=== PATIENT | female | born 1945 | race Caucasian/White ===

== ENCOUNTER 2017-09-01 06:21 | Inpatient (IN) ==
[2017-09-01] MEDS ORDERED: methylPREDNISolone SOD SUC 125 MG/2 ML VIAL IV STA (06:51)
[2017-09-01] MEDS ORDERED: ALBUTEROL 2.5 MG/3 ML NEB RESP TX STA ×2 (06:52→07:39)
[2017-09-01] MEDS ORDERED: methylPREDNISolone SOD SUC 125 MG/2 ML VIAL ONE (07:09)
[2017-09-01 07:15] LABS: Basophils # 0.1 10*3/uL (0.0-0.2); Basophils % 0.4 % (0.0-0.8); Eosinophils # 0.1 10*3/uL (0.0-0.87); Eosinophils % 0.9 % (0.00-10.9); Hematocrit 36.4 VOL% (35.7-47.0); Hemoglobin 11.7 GM/DL (12.0-16.0); Immature Granulocytes % 0.5 %; Immature Granulocytes Absolute 0.06 #; Lymphocytes # 2.9 10*3/uL (1.4-4.0); Lymphocytes % 24.6 % (21.3-54.2); Mean Corpuscular HGB Conc 32.1 GM/DL (32-36); Mean Corpuscular Hemoglobin 29 PG (27-34); Mean Corpuscular Volume 90.8 FL (87-102); Mean Platelet Volume 9.7 FL (9.6-12.0); Monocytes # 0.9 10*3/uL (0.11-0.8); Monocytes % 7.9 % (1.7-12.7); Neutrophils # 7.7 10*3/uL (1.4-7.4); Neutrophils % 65.7 % (38.7-73.9); Platelet Count 232 T/CUMM (130-400); Red Blood Count 4.01 MC/CUMM (3.8-5.5); Red Cell Distribution Width 13.7 % (9.3-17.3); White Blood Count 11.8 T/CUMM (4-12)
[2017-09-01 07:31] LABS: Alanine Aminotransferase 21 U/L (13-56); Albumin 3.7 G/DL (3.4-5.0); Alkaline Phosphatase 64 U/L (45-117); Aspartate Amino Transferase 15 U/L (0-37); Bilirubin,Total < 0.39 MG/DL (0.2-1.0); Blood Urea Nitrogen 17 MG/DL (7-18); Calcium 9.5 MG/DL (8.5-10.1); Glucose 113 MG/DL (74-106); Osmolality,Calculated 283.3 MOS/KG (273-304); Potassium 3.8 MMOL/L (3.5-5.1); Sodium 141 MMOL/L (136-145); Total Protein 6.6 G/DL (6.4-8.3)
[2017-09-01] MEDS ORDERED: DEXTROSE 50% 25 GM/50 ML VIAL IV PRN (08:02)
[2017-09-01] MEDS ORDERED: GLUCAGON 1 MG VIAL IM PRN (08:02)
[2017-09-01] MEDS ORDERED: ONDANSETRON 4 MG/2 ML VIAL IV PRN (08:02)
[2017-09-01] MEDS ORDERED: guaiFENesin/DM ER 600-30 MG TABLET PO PRN (08:02)
[2017-09-01] MEDS ORDERED: DOCUSATE SODIUM 100 MG CAPSULE PO PRN (08:02)
[2017-09-01] MEDS: methylPREDNISolone SOD SUC 40 MG/1 ML VIAL IV SCH ×2 (10:23→15:31)
[2017-09-01] MEDS ORDERED: cefTRIAXone 1,000 MG VIAL ONE (10:24)
[2017-09-01] MEDS ORDERED: AZITHROMYCIN 500 MG VIAL IV ONE (10:24)
[2017-09-01] MEDS: cefTRIAXone 1,000 MG in SYRINGE 1 EACH IV SCH (10:25)
[2017-09-01] MEDS ORDERED: PANTOPRAZOLE 40 MG TABLET PO ONE (10:32)
[2017-09-01] MEDS: PANTOPRAZOLE 40 MG TABLET PO SCH (10:33)
[2017-09-01] MEDS: AZITHROMYCIN INJ 500 MG in SODIUM CHLORIDE 0.9% 250 ML IV SCH (10:53)
[2017-09-01] MEDS: ALBUTEROL/IPRATROPIUM 3 ML NEB RESP TX SCH ×2 (12:03→20:33)
[2017-09-01] MEDS: INSULIN LISPRO 100 UNIT/ML SUBCUT SCH ×2 (15:30→17:41)
[2017-09-02] MEDS: methylPREDNISolone SOD SUC 40 MG/1 ML VIAL IV SCH ×2 (00:15→10:16)
[2017-09-02] MEDS: hydrALAZINE 20 MG/1 ML VIAL IV PRN ×2 (00:15→10:36)
[2017-09-02] MEDS: INSULIN LISPRO 100 UNIT/ML SUBCUT SCH ×4 (00:15→18:50)
[2017-09-02] MEDS: NEBIVOLOL 10 MG TABLET PO SCH ×2 (00:20→10:12)
[2017-09-02] MEDS: ALBUTEROL/IPRATROPIUM 3 ML NEB RESP TX SCH ×4 (00:44→20:16)
[2017-09-02 05:41] LABS: Basophils % 0.2 % (0.0-0.8); Hematocrit 37.8 VOL% (35.7-47.0); Hemoglobin 12.3 GM/DL (12.0-16.0); Immature Granulocytes Absolute 0.13 #; Lymphocytes # 0.9 10*3/uL (1.4-4.0); Lymphocytes % 6.9 % (21.3-54.2); Mean Corpuscular HGB Conc 32.5 GM/DL (32-36); Mean Corpuscular Hemoglobin 29 PG (27-34); Mean Platelet Volume 10.4 FL (9.6-12.0); Monocytes # 0.6 10*3/uL (0.11-0.8); Monocytes % 4.6 % (1.7-12.7); Neutrophils # 11.3 10*3/uL (1.4-7.4); Neutrophils % 87.3 % (38.7-73.9); Platelet Count 246 T/CUMM (130-400); Red Cell Distribution Width 13.7 % (9.3-17.3)
[2017-09-02 06:05] LABS: Calcium 9.5 MG/DL (8.5-10.1); Osmolality,Calculated 284.5 MOS/KG (273-304); Potassium 4.2 MMOL/L (3.5-5.1)
[2017-09-02] MEDS ORDERED: NEBIVOLOL 10 MG TABLET PO SCH (09:00)
[2017-09-02] MEDS: PANTOPRAZOLE 40 MG TABLET PO SCH (10:10)
[2017-09-02] MEDS: MONTELUKAST 10 MG TABLET PO SCH (10:10)
[2017-09-02] MEDS: ROFLUMILAST 500 MCG TABLET PO SCH (10:11)
[2017-09-02] MEDS: CETIRIZINE 10 MG TABLET PO SCH (10:11)
[2017-09-02] MEDS: ASPIRIN EC 81 MG TABLET PO SCH (10:12)
[2017-09-02] MEDS: THEOPHYLLINE ER 300 MG TABLET PO SCH ×2 (10:13→20:46)
[2017-09-02] MEDS: DILTIAZEM 60 MG TABLET PO SCH ×2 (10:13→20:45)
[2017-09-02] MEDS: MULTIVITAMIN (CENTRUM) TABLET PO SCH (10:14)
[2017-09-02] MEDS: OMEGA 3 ACID ETHYL ESTERS 1 GM CAPSULE PO SCH (10:14)
[2017-09-02] MEDS: FLUTICASONE 50 MCG NASAL SPRAY 16 GM BOTTLE BOTH NARES SCH ×2 (10:15→20:55)
[2017-09-02] MEDS: BUDESONIDE/FORMOTEROL 160-4.5 INHALER 6 GM INH SCH ×2 (10:36→20:55)
[2017-09-02] MEDS: BENZONATATE 100 MG CAPSULE PO SCH ×3 (10:36→20:46)
[2017-09-02] MEDS: cefTRIAXone 1,000 MG in SYRINGE 1 EACH IV SCH (10:39)
[2017-09-02] MEDS: AZITHROMYCIN INJ 500 MG in SODIUM CHLORIDE 0.9% 250 ML IV SCH (10:46)
[2017-09-02] MEDS ORDERED: TERBUTALINE 1 MG/1 ML VIAL SUBCUT ONE (11:09)
[2017-09-02 11:42] LABS: ABG Base Excess 3.2 MMOL/L (-2.5-2.5); ABG HCO3 27.2 MMOL/L (20-26); ABG PO2 71.9 MM HG (80-95); ABG TCO2 23.7 MMOL/L (23-27)
[2017-09-02] MEDS: DORNASE ALFA 2.5 MG/2.5 ML VIAL RESP TX SCH ×2 (11:45→20:16)
[2017-09-02] MEDS: methylPREDNISolone SOD SUC 125 MG/2 ML VIAL IV SCH ×2 (14:31→18:52)
[2017-09-02] MEDS: MEROPENEM 1,000 MG in SYRINGE 1 EACH IV SCH ×3 (14:35→21:25)
[2017-09-02] MEDS: CLINDAMYCIN INJ 600 MG in PREMIX 1 EACH IV SCH ×2 (14:43→20:44)
[2017-09-02] MEDS: guaiFENesin/DM ER 600-30 MG TABLET PO SCH (20:46)
[2017-09-03] MEDS: INSULIN LISPRO 100 UNIT/ML SUBCUT SCH ×4 (00:46→19:25)
[2017-09-03] MEDS: ALBUTEROL/IPRATROPIUM 3 ML NEB RESP TX SCH ×4 (00:52→21:37)
[2017-09-03] MEDS: methylPREDNISolone SOD SUC 125 MG/2 ML VIAL IV SCH ×3 (04:28→19:21)
[2017-09-03] MEDS: CLINDAMYCIN INJ 600 MG in PREMIX 1 EACH IV SCH ×3 (04:30→20:16)
[2017-09-03 07:17] LABS: Basophils % 0.1 % (0.0-0.8); Hematocrit 35.3 VOL% (35.7-47.0); Hemoglobin 11.7 GM/DL (12.0-16.0); Immature Granulocytes % 1.1 %; Immature Granulocytes Absolute 0.15 #; Lymphocytes # 0.7 10*3/uL (1.4-4.0); Lymphocytes % 5.5 % (21.3-54.2); Mean Corpuscular HGB Conc 33.1 GM/DL (32-36); Mean Corpuscular Hemoglobin 30 PG (27-34); Mean Corpuscular Volume 88.9 FL (87-102); Mean Platelet Volume 10.8 FL (9.6-12.0); Monocytes # 0.6 10*3/uL (0.11-0.8); Monocytes % 4.1 % (1.7-12.7); Neutrophils % 89.2 % (38.7-73.9); Platelet Count 257 T/CUMM (130-400); Red Blood Count 3.97 MC/CUMM (3.8-5.5); White Blood Count 13.5 T/CUMM (4-12)
[2017-09-03] MEDS: DORNASE ALFA 2.5 MG/2.5 ML VIAL RESP TX SCH ×2 (07:35→21:43)
[2017-09-03 07:40] LABS: Calcium 9.6 MG/DL (8.5-10.1); Osmolality,Calculated 288.3 MOS/KG (273-304); Potassium 3.6 MMOL/L (3.5-5.1)
[2017-09-03] MEDS: CETIRIZINE 10 MG TABLET PO SCH (09:19)
[2017-09-03] MEDS: NEBIVOLOL 10 MG TABLET PO SCH (09:19)
[2017-09-03] MEDS: ASPIRIN EC 81 MG TABLET PO SCH (09:20)
[2017-09-03] MEDS: MONTELUKAST 10 MG TABLET PO SCH (09:20)
[2017-09-03] MEDS: BENZONATATE 100 MG CAPSULE PO SCH ×3 (09:20→20:17)
[2017-09-03] MEDS: THEOPHYLLINE ER 300 MG TABLET PO SCH ×2 (09:20→20:17)
[2017-09-03] MEDS: PANTOPRAZOLE 40 MG TABLET PO SCH (09:21)
[2017-09-03] MEDS: DILTIAZEM 60 MG TABLET PO SCH ×2 (09:21→20:17)
[2017-09-03] MEDS: MULTIVITAMIN (CENTRUM) TABLET PO SCH (09:23)
[2017-09-03] MEDS: guaiFENesin/DM ER 600-30 MG TABLET PO SCH ×2 (09:23→20:17)
[2017-09-03] MEDS: OMEGA 3 ACID ETHYL ESTERS 1 GM CAPSULE PO SCH (09:23)
[2017-09-03] MEDS: FLUTICASONE 50 MCG NASAL SPRAY 16 GM BOTTLE BOTH NARES SCH ×2 (09:24→20:15)
[2017-09-03] MEDS: BUDESONIDE/FORMOTEROL 160-4.5 INHALER 6 GM INH SCH ×2 (09:24→20:15)
[2017-09-03] MEDS: MEROPENEM 1,000 MG in SYRINGE 1 EACH IV SCH ×2 (09:25→20:27)
[2017-09-03] MEDS ORDERED: TERBUTALINE 1 MG/1 ML VIAL SUBCUT ONE (09:30)
[2017-09-03 09:38] LABS: PT Patient Result 10.2 SECS; Partial Thromboplastin Time 23.1 SECS (0-40)
[2017-09-03] MEDS: ROFLUMILAST 500 MCG TABLET PO SCH (11:24)
[2017-09-03] MEDS: AZITHROMYCIN INJ 500 MG in SODIUM CHLORIDE 0.9% 250 ML IV SCH (11:32)
[2017-09-04] MEDS: ALBUTEROL/IPRATROPIUM 3 ML NEB RESP TX SCH ×4 (01:30→20:29)
[2017-09-04] MEDS: INSULIN LISPRO 100 UNIT/ML SUBCUT SCH ×4 (02:00→18:33)
[2017-09-04] MEDS: CLINDAMYCIN INJ 600 MG in PREMIX 1 EACH IV SCH ×3 (05:02→21:31)
[2017-09-04] MEDS: methylPREDNISolone SOD SUC 125 MG/2 ML VIAL IV SCH ×3 (05:03→18:34)
[2017-09-04 05:41] LABS: Basophils % 0.1 % (0.0-0.8); Hematocrit 34.5 VOL% (35.7-47.0); Hemoglobin 11.1 GM/DL (12.0-16.0); Immature Granulocytes % 1.6 %; Immature Granulocytes Absolute 0.18 #; Lymphocytes # 0.6 10*3/uL (1.4-4.0); Lymphocytes % 5.1 % (21.3-54.2); Mean Corpuscular HGB Conc 32.2 GM/DL (32-36); Mean Corpuscular Hemoglobin 29 PG (27-34); Mean Corpuscular Volume 90.6 FL (87-102); Monocytes # 0.3 10*3/uL (0.11-0.8); Monocytes % 2.8 % (1.7-12.7); Neutrophils # 10.3 10*3/uL (1.4-7.4); Neutrophils % 90.4 % (38.7-73.9); Platelet Count 217 T/CUMM (130-400); Red Blood Count 3.81 MC/CUMM (3.8-5.5); Red Cell Distribution Width 13.7 % (9.3-17.3); White Blood Count 11.4 T/CUMM (4-12)
[2017-09-04 06:18] LABS: Calcium 8.9 MG/DL (8.5-10.1); Osmolality,Calculated 298.3 MOS/KG (273-304); Potassium 3.8 MMOL/L (3.5-5.1)
[2017-09-04] MEDS ORDERED: PROMETHAZINE 25 MG/1 ML VIAL IM ONE (07:00)
[2017-09-04] MEDS: DORNASE ALFA 2.5 MG/2.5 ML VIAL RESP TX SCH ×3 (07:08→20:29)
[2017-09-04] MEDS ORDERED: MIDAZOLAM 2 MG/2 ML VIAL ONE (07:11)
[2017-09-04] MEDS ORDERED: MIDAZOLAM 2 MG/2 ML VIAL IV ONE (07:30)
[2017-09-04] MEDS ORDERED: LIDOCAINE 2% 20 ML VIAL RESP TX ONE (07:30)
[2017-09-04] MEDS ORDERED: LIDOCAINE 1% 20 ML VIAL MISC INJ ONE (07:30)
[2017-09-04] MEDS: MEROPENEM 1,000 MG in SYRINGE 1 EACH IV SCH ×2 (09:22→21:18)
[2017-09-04] MEDS: THEOPHYLLINE ER 300 MG TABLET PO SCH ×2 (10:23→21:15)
[2017-09-04] MEDS: DILTIAZEM 60 MG TABLET PO SCH ×2 (10:23→21:15)
[2017-09-04] MEDS: OMEGA 3 ACID ETHYL ESTERS 1 GM CAPSULE PO SCH (10:23)
[2017-09-04] MEDS: MONTELUKAST 10 MG TABLET PO SCH (10:23)
[2017-09-04] MEDS: BENZONATATE 100 MG CAPSULE PO SCH ×3 (10:23→21:15)
[2017-09-04] MEDS: MULTIVITAMIN (CENTRUM) TABLET PO SCH (10:23)
[2017-09-04] MEDS: PANTOPRAZOLE 40 MG TABLET PO SCH (10:24)
[2017-09-04] MEDS: CETIRIZINE 10 MG TABLET PO SCH (10:24)
[2017-09-04] MEDS: ASPIRIN EC 81 MG TABLET PO SCH (10:24)
[2017-09-04] MEDS: guaiFENesin/DM ER 600-30 MG TABLET PO SCH ×2 (10:24→21:35)
[2017-09-04] MEDS: FLUTICASONE 50 MCG NASAL SPRAY 16 GM BOTTLE BOTH NARES SCH ×2 (10:24→21:37)
[2017-09-04] MEDS: NEBIVOLOL 10 MG TABLET PO SCH (10:24)
[2017-09-04] MEDS: BUDESONIDE/FORMOTEROL 160-4.5 INHALER 6 GM INH SCH ×2 (10:24→21:36)
[2017-09-04] MEDS: AZITHROMYCIN INJ 500 MG in SODIUM CHLORIDE 0.9% 250 ML IV SCH (10:29)
[2017-09-04] MEDS: ROFLUMILAST 500 MCG TABLET PO SCH (10:29)
[2017-09-04] MEDS ORDERED: ZALEPLON 5 MG CAPSULE PO ONE (21:02)
[2017-09-05] MEDS: ALBUTEROL/IPRATROPIUM 3 ML NEB RESP TX SCH ×2 (00:24→08:18)
[2017-09-05] MEDS: INSULIN LISPRO 100 UNIT/ML SUBCUT SCH ×2 (00:45→06:55)
[2017-09-05] MEDS: methylPREDNISolone SOD SUC 125 MG/2 ML VIAL IV SCH ×2 (04:51→10:59)
[2017-09-05] MEDS: CLINDAMYCIN INJ 600 MG in PREMIX 1 EACH IV SCH (04:54)
[2017-09-05] MEDS: MEROPENEM 1,000 MG in SYRINGE 1 EACH IV SCH (08:44)
[2017-09-05] MEDS: DILTIAZEM 60 MG TABLET PO SCH (08:45)
[2017-09-05] MEDS: THEOPHYLLINE ER 300 MG TABLET PO SCH (08:45)
[2017-09-05] MEDS: PANTOPRAZOLE 40 MG TABLET PO SCH (08:45)
[2017-09-05] MEDS: MULTIVITAMIN (CENTRUM) TABLET PO SCH (08:45)
[2017-09-05] MEDS: MONTELUKAST 10 MG TABLET PO SCH (08:45)
[2017-09-05] MEDS: ASPIRIN EC 81 MG TABLET PO SCH (08:45)
[2017-09-05] MEDS: guaiFENesin/DM ER 600-30 MG TABLET PO SCH (08:45)
[2017-09-05] MEDS: BENZONATATE 100 MG CAPSULE PO SCH (08:46)
[2017-09-05] MEDS: CETIRIZINE 10 MG TABLET PO SCH (08:46)
[2017-09-05] MEDS: NEBIVOLOL 10 MG TABLET PO SCH (08:46)
[2017-09-05] MEDS: FLUTICASONE 50 MCG NASAL SPRAY 16 GM BOTTLE BOTH NARES SCH (08:46)
[2017-09-05] MEDS: OMEGA 3 ACID ETHYL ESTERS 1 GM CAPSULE PO SCH (08:46)
[2017-09-05] MEDS: BUDESONIDE/FORMOTEROL 160-4.5 INHALER 6 GM INH SCH (08:47)
[2017-09-05] MEDS: ROFLUMILAST 500 MCG TABLET PO SCH (08:51)
[2017-09-05] MEDS: DORNASE ALFA 2.5 MG/2.5 ML VIAL RESP TX SCH (10:40)
[2017-09-05] MEDS: AZITHROMYCIN INJ 500 MG in SODIUM CHLORIDE 0.9% 250 ML IV SCH (10:58)
[2017-09-05 12:01] VITALS: BP 163/70
== END 2017-09-05 11:53 | disposition home or self-care (01) | DRG 166 ==
LOC: N.ED 06:21 → N.EDINP 07:46 → SUATTDRO 07:46 → N.4E 13:47
PROVIDERS: ADMIT Internal Medicine Nephrology; ATTEND Internal Medicine

== ENCOUNTER 2018-04-26 09:31 | Inpatient (IN) ==
[2018-04-26 10:26] LABS: Basophils # 0.1 10*3/uL (0.0-0.2); Basophils % 0.3 % (0.0-0.8); Eosinophils # 0.1 10*3/uL (0.0-0.87); Eosinophils % 0.3 % (0.00-10.9); Hematocrit 38.7 VOL% (35.7-47.0); Hemoglobin 12.9 GM/DL (12.0-16.0); Immature Granulocytes % 0.4 %; Immature Granulocytes Absolute 0.08 #; Lymphocytes # 2.3 10*3/uL (1.4-4.0); Lymphocytes % 12.9 % (21.3-54.2); Mean Corpuscular HGB Conc 33.3 GM/DL (32-36); Mean Corpuscular Hemoglobin 30 PG (27-34); Mean Corpuscular Volume 89.6 FL (87-102); Mean Platelet Volume 10.3 FL (9.6-12.0); Monocytes # 1.5 10*3/uL (0.11-0.8); Monocytes % 8.4 % (1.7-12.7); Neutrophils # 13.8 10*3/uL (1.4-7.4); Neutrophils % 77.7 % (38.7-73.9); Platelet Count 219 T/CUMM (130-400); Red Blood Count 4.32 MC/CUMM (3.8-5.5); White Blood Count 17.8 T/CUMM (4-12)
[2018-04-26 10:36] LABS: Albumin 3.6 G/DL (3.4-5.0); Bilirubin,Total 0.6 MG/DL (0.2-1.0); Calcium 9.1 MG/DL (8.5-10.1); Osmolality,Calculated 275.8 MOS/KG (273-304); Potassium 3.5 MMOL/L (3.5-5.1); Total Protein 7.4 G/DL (6.4-8.3)
[2018-04-27 06:11] LABS: Basophils % 0.1 % (0.0-0.8); Hematocrit 34.3 VOL% (35.7-47.0); Hemoglobin 11.4 GM/DL (12.0-16.0); Immature Granulocytes % 0.6 %; Immature Granulocytes Absolute 0.07 #; Lymphocytes # 0.6 10*3/uL (1.4-4.0); Lymphocytes % 5.6 % (21.3-54.2); Mean Corpuscular HGB Conc 33.2 GM/DL (32-36); Mean Corpuscular Hemoglobin 30 PG (27-34); Mean Corpuscular Volume 89.8 FL (87-102); Monocytes # 0.3 10*3/uL (0.11-0.8); Monocytes % 2.6 % (1.7-12.7); Neutrophils # 10.2 10*3/uL (1.4-7.4); Neutrophils % 91.1 % (38.7-73.9); Platelet Count 187 T/CUMM (130-400); Red Blood Count 3.82 MC/CUMM (3.8-5.5); Red Cell Distribution Width 12.8 % (9.3-17.3); White Blood Count 11.2 T/CUMM (4-12)
[2018-04-27 06:45] LABS: Band Neutrophils 11 % (0-10); Lymphocytes 3 % (20-55); Platelet Estimate Normal; Segmented Neutrophils 84 % (50-85); Total Cells Counted 100
[2018-04-27 06:46] LABS: Anisocytosis Slight
[2018-04-27 06:54] LABS: Osmolality,Calculated 292.3 MOS/KG (273-304); Potassium 3.7 MMOL/L (3.5-5.1); Risk Ratio 3.38; Thyroid Stimulating Hormone 0.669 uIU/ml (0.358-3.74); VLDL CHOLESTEROL 16.4 MG/DL
[2018-04-29 08:26] LABS: Basophils % 0.1 % (0.0-0.8); Hemoglobin 11.9 GM/DL (12.0-16.0); Immature Granulocytes % 1.8 %; Immature Granulocytes Absolute 0.17 #; Lymphocytes # 0.7 10*3/uL (1.4-4.0); Lymphocytes % 7.3 % (21.3-54.2); Mean Corpuscular Hemoglobin 30 PG (27-34); Mean Corpuscular Volume 88.6 FL (87-102); Mean Platelet Volume 10.4 FL (9.6-12.0); Monocytes # 0.4 10*3/uL (0.11-0.8); Monocytes % 4.1 % (1.7-12.7); Neutrophils # 8.2 10*3/uL (1.4-7.4); Neutrophils % 86.7 % (38.7-73.9); Platelet Count 219 T/CUMM (130-400); Red Blood Count 3.95 MC/CUMM (3.8-5.5); Red Cell Distribution Width 12.8 % (9.3-17.3); White Blood Count 9.4 T/CUMM (4-12)
[2018-04-29 08:57] LABS: Calcium 8.5 MG/DL (8.5-10.1); Potassium 3.3 MMOL/L (3.5-5.1)
[2018-04-29 09:04] LABS: INR 0.9; Partial Thromboplastin Time 22.4 SECS (0-40)
[2018-05-02 10:33] VITALS: BP 147/77
== END 2018-05-02 11:55 | disposition home or self-care (01) | DRG 192 ==
LOC: N.ED 09:31 → N.EDINP 11:51 → N.5E 12:48
PROVIDERS: ADMIT Internal Medicine; ATTEND Internal Medicine

== ENCOUNTER 2018-05-07 16:51 | Inpatient (IN) ==
[2018-05-07] MEDS ORDERED: ASPIRIN 325 MG TABLET PO STA (18:06)
[2018-05-07] MEDS ORDERED: ONDANSETRON 4 MG/2 ML VIAL IV STA (18:06)
[2018-05-07] MEDS ORDERED: methylPREDNISolone SOD SUC 125 MG/2 ML VIAL IV STA (18:06)
[2018-05-07] MEDS ORDERED: FUROSEMIDE 100 MG/10 ML VIAL IV STA (18:06)
[2018-05-07] MEDS ORDERED: FUROSEMIDE 20 MG/2 ML VIAL ONE (18:11)
[2018-05-07 18:29] LABS: ABG Base Excess 7.9 MMOL/L (-2.5-2.5); ABG HCO3 31.6 MMOL/L (20-26); ABG Oxygen Saturation 96.2 % (95-100); ABG PCO2 41.6 MM HG (35-48); ABG PH 7.494 (7.35-7.45); ABG PO2 74.1 MM HG (80-95); ABG TCO2 27.8 MMOL/L (23-27)
[2018-05-07] MEDS ORDERED: ALBUTEROL NEB SOLN 5 MG/ML 20 ML/BOTTLE RESP TX SCH (18:30)
[2018-05-07 18:44] LABS: Basophils % 0.1 % (0.0-0.8); Eosinophils # 0.1 10*3/uL (0.0-0.87); Eosinophils % 0.7 % (0.00-10.9); Hematocrit 39.3 VOL% (35.7-47.0); Hemoglobin 12.9 GM/DL (12.0-16.0); Immature Granulocytes % 0.8 %; Immature Granulocytes Absolute 0.14 #; Lymphocytes # 1.6 10*3/uL (1.4-4.0); Lymphocytes % 9.9 % (21.3-54.2); Mean Corpuscular HGB Conc 32.8 GM/DL (32-36); Mean Corpuscular Hemoglobin 30 PG (27-34); Mean Corpuscular Volume 90.8 FL (87-102); Mean Platelet Volume 11.2 FL (9.6-12.0); Monocytes # 1.2 10*3/uL (0.11-0.8); Monocytes % 7.2 % (1.7-12.7); Neutrophils # 13.5 10*3/uL (1.4-7.4); Neutrophils % 81.3 % (38.7-73.9); Platelet Count 166 T/CUMM (130-400); Red Blood Count 4.33 MC/CUMM (3.8-5.5); Red Cell Distribution Width 12.8 % (9.3-17.3); White Blood Count 16.5 T/CUMM (4-12)
[2018-05-07 18:52] LABS: PT Patient Result 10.1 SECS
[2018-05-07 19:07] LABS: Albumin 3.1 G/DL (3.4-5.0); Bilirubin,Total 0.7 MG/DL (0.2-1.0); Calcium 8.8 MG/DL (8.5-10.1); Osmolality,Calculated 276.5 MOS/KG (273-304); Potassium 3.6 MMOL/L (3.5-5.1); Total Protein 5.8 G/DL (6.4-8.3)
[2018-05-07 20:22] LABS: Apearance,Urine CLEAR (Clear); Bilirubin,Urine Negative (Negative); Blood, Urine Negative (Negative); Glucose,Urine (UA) Negative (Negative); Ketones,Urine Negative (Negative); Nitrite,Urine Negative (Negative); Protein,Urine Negative; Squamous Epithelial Cell,Urine Occasional /HPF (0-10); Urine Color Straw (Yellow); Urine Specific Gravity 1.012 (1.001-1.035); Urine Urobilinogen < 2.0 EU/DL (0.2-1.0); WBC,Urine 1 /HPF (0-6)
[2018-05-07] MEDS: ALBUTEROL/IPRATROPIUM 3 ML NEB RESP TX SCH (23:00)
[2018-05-07] MEDS ORDERED: IBUPROFEN 800 MG TABLET PO PRN (23:57)
[2018-05-07] MEDS ORDERED: diphenhydrAMINE CAP 25 MG CAPSULE PO PRN (23:57)
[2018-05-07] MEDS ORDERED: GLUCAGON 1 MG VIAL IM PRN (23:57)
[2018-05-07] MEDS ORDERED: ONDANSETRON 4 MG/2 ML VIAL IV PRN (23:57)
[2018-05-07] MEDS ORDERED: DEXTROSE 50% 25 GM/50 ML VIAL IV PRN (23:57)
[2018-05-07] MEDS ORDERED: LACTULOSE 20 GM/30 ML UDCUP PO PRN (23:57)
[2018-05-08] MEDS ORDERED: INSULIN REGULAR 100 UNIT/ML SUBCUT ONE (00:16)
[2018-05-08] MEDS: AZITHROMYCIN INJ 500 MG in SODIUM CHLORIDE 0.9% 250 ML IV SCH (01:56)
[2018-05-08] MEDS: ALBUTEROL/IPRATROPIUM 3 ML NEB RESP TX SCH ×6 (02:43→23:44)
[2018-05-08 06:57] LABS: Basophils % 0.2 % (0.0-0.8); Hematocrit 37.9 VOL% (35.7-47.0); Hemoglobin 12.4 GM/DL (12.0-16.0); Immature Granulocytes % 0.8 %; Lymphocytes # 0.2 10*3/uL (1.4-4.0); Lymphocytes % 1.7 % (21.3-54.2); Mean Corpuscular HGB Conc 32.7 GM/DL (32-36); Mean Corpuscular Hemoglobin 29 PG (27-34); Mean Corpuscular Volume 89.2 FL (87-102); Mean Platelet Volume 10.7 FL (9.6-12.0); Monocytes # 0.3 10*3/uL (0.11-0.8); Monocytes % 2.2 % (1.7-12.7); Neutrophils # 12.4 10*3/uL (1.4-7.4); Neutrophils % 95.1 % (38.7-73.9); Platelet Count 186 T/CUMM (130-400); Red Blood Count 4.25 MC/CUMM (3.8-5.5); Red Cell Distribution Width 12.9 % (9.3-17.3)
[2018-05-08 07:29] LABS: Band Neutrophils 1 % (0-10); Hypochromasia 1+; Platelet Estimate Adequate; Segmented Neutrophils 97 % (50-85); Total Cells Counted 100
[2018-05-08 07:30] LABS: Albumin 2.8 G/DL (3.4-5.0); Bilirubin,Total 0.5 MG/DL (0.2-1.0); Calcium 8.4 MG/DL (8.5-10.1); Osmolality,Calculated 297.7 MOS/KG (273-304); Total Protein 5.8 G/DL (6.4-8.3)
[2018-05-08] MEDS ORDERED: NON-FORMULARY MEDICATION (Fluticasone 50 Mcg Nasal Spray [Flonase Nasal Spray] 2 SPRAY) BOTH NARES SCH (09:00)
[2018-05-08] MEDS: CETIRIZINE 10 MG TABLET PO SCH (09:42)
[2018-05-08] MEDS: PANTOPRAZOLE 40 MG TABLET PO SCH (09:42)
[2018-05-08] MEDS: DILTIAZEM 60 MG TABLET PO SCH ×2 (09:42→21:38)
[2018-05-08] MEDS: MULTIVITAMIN (CENTRUM) TABLET PO SCH (09:42)
[2018-05-08] MEDS: DOCUSATE SODIUM 100 MG CAPSULE PO PRN (09:42)
[2018-05-08] MEDS: ASPIRIN EC 81 MG TABLET PO SCH (09:43)
[2018-05-08] MEDS: THEOPHYLLINE ER (24 HR) 300 MG CAPSULE PO SCH ×2 (09:43→21:38)
[2018-05-08] MEDS: guaiFENesin/DM ER 600-30 MG TABLET PO SCH (09:43)
[2018-05-08] MEDS: ROFLUMILAST 500 MCG TABLET PO SCH (09:43)
[2018-05-08] MEDS: MONTELUKAST 10 MG TABLET PO SCH (09:43)
[2018-05-08] MEDS: DOXYCYCLINE HYCLATE 100 MG CAPSULE PO SCH ×2 (09:43→21:38)
[2018-05-08] MEDS: NEBIVOLOL 10 MG TABLET PO SCH (09:43)
[2018-05-08] MEDS: OMEGA 3 ACID ETHYL ESTERS 1 GM CAPSULE PO SCH (09:43)
[2018-05-08] MEDS: ENOXAPARIN 40 MG/0.4 ML SYRINGE SUBCUT SCH (09:43)
[2018-05-08] MEDS: methylPREDNISolone SOD SUC 40 MG/1 ML VIAL IV SCH ×2 (09:44→21:38)
[2018-05-08] MEDS: INSULIN REGULAR 100 UNIT/ML SUBCUT SCH ×4 (09:48→21:39)
[2018-05-08] MEDS: FUROSEMIDE 20 MG/2 ML VIAL IV SCH (09:53)
[2018-05-08] MEDS: BUDESONIDE/FORMOTEROL 160-4.5 INHALER 6 GM INH SCH ×2 (09:53→21:43)
[2018-05-08] MEDS: valACYclovir 500 MG TABLET PO SCH ×2 (14:58→21:38)
[2018-05-08] MEDS: SODIUM CHLORIDE 0.9% 1,000 ML IV SCH (17:28)
[2018-05-08] MEDS: DORNASE ALFA 2.5 MG/2.5 ML VIAL RESP TX SCH (19:38)
[2018-05-09] MEDS: guaiFENesin 200 MG/10 ML UDCUP PO PRN ×3 (00:34→19:01)
[2018-05-09] MEDS: AZITHROMYCIN INJ 500 MG in SODIUM CHLORIDE 0.9% 250 ML IV SCH (00:39)
[2018-05-09] MEDS: ALBUTEROL/IPRATROPIUM 3 ML NEB RESP TX SCH ×6 (03:26→23:47)
[2018-05-09 05:52] LABS: Basophils % 0.1 % (0.0-0.8); Hematocrit 35.3 VOL% (35.7-47.0); Hemoglobin 11.6 GM/DL (12.0-16.0); Immature Granulocytes Absolute 0.13 #; Lymphocytes # 0.3 10*3/uL (1.4-4.0); Lymphocytes % 2.4 % (21.3-54.2); Mean Corpuscular HGB Conc 32.9 GM/DL (32-36); Mean Corpuscular Hemoglobin 30 PG (27-34); Mean Corpuscular Volume 89.8 FL (87-102); Mean Platelet Volume 11.8 FL (9.6-12.0); Monocytes # 0.4 10*3/uL (0.11-0.8); Monocytes % 3.2 % (1.7-12.7); Neutrophils # 11.9 10*3/uL (1.4-7.4); Neutrophils % 93.3 % (38.7-73.9); Platelet Count 123 T/CUMM (130-400); Red Blood Count 3.93 MC/CUMM (3.8-5.5); White Blood Count 12.8 T/CUMM (4-12)
[2018-05-09 06:04] LABS: Calcium 8.3 MG/DL (8.5-10.1); Osmolality,Calculated 294.4 MOS/KG (273-304); Potassium 3.9 MMOL/L (3.5-5.1)
[2018-05-09 06:17] LABS: Band Neutrophils 13 % (0-10); Lymphocytes 2 % (20-55); Platelet Estimate Adequate; Segmented Neutrophils 81 % (50-85); Total Cells Counted 100
[2018-05-09 06:18] LABS: Anisocytosis 1+; Macrocytosis Slight
[2018-05-09] MEDS: SODIUM CHLORIDE 0.9% 1,000 ML IV SCH ×4 (06:44→22:10)
[2018-05-09] MEDS: DORNASE ALFA 2.5 MG/2.5 ML VIAL RESP TX SCH ×2 (07:47→19:25)
[2018-05-09] MEDS: INSULIN REGULAR 100 UNIT/ML SUBCUT SCH ×4 (09:05→20:16)
[2018-05-09] MEDS: methylPREDNISolone SOD SUC 40 MG/1 ML VIAL IV SCH ×2 (09:08→19:01)
[2018-05-09] MEDS: NEBIVOLOL 10 MG TABLET PO SCH (09:09)
[2018-05-09] MEDS: DOCUSATE SODIUM 100 MG CAPSULE PO PRN (09:10)
[2018-05-09] MEDS: guaiFENesin/DM ER 600-30 MG TABLET PO SCH (09:10)
[2018-05-09] MEDS: valACYclovir 500 MG TABLET PO SCH ×3 (09:10→20:14)
[2018-05-09] MEDS: DOXYCYCLINE HYCLATE 100 MG CAPSULE PO SCH ×2 (09:10→20:15)
[2018-05-09] MEDS: DILTIAZEM 60 MG TABLET PO SCH ×2 (09:10→20:14)
[2018-05-09] MEDS: THEOPHYLLINE ER (24 HR) 300 MG CAPSULE PO SCH ×2 (09:10→20:14)
[2018-05-09] MEDS: MONTELUKAST 10 MG TABLET PO SCH (09:10)
[2018-05-09] MEDS: ASPIRIN EC 81 MG TABLET PO SCH (09:10)
[2018-05-09] MEDS: ROFLUMILAST 500 MCG TABLET PO SCH (09:11)
[2018-05-09] MEDS: PANTOPRAZOLE 40 MG TABLET PO SCH (09:11)
[2018-05-09] MEDS: FUROSEMIDE 20 MG/2 ML VIAL IV SCH (09:11)
[2018-05-09] MEDS: CETIRIZINE 10 MG TABLET PO SCH (09:11)
[2018-05-09] MEDS: MULTIVITAMIN (CENTRUM) TABLET PO SCH (09:11)
[2018-05-09] MEDS: ENOXAPARIN 40 MG/0.4 ML SYRINGE SUBCUT SCH (09:12)
[2018-05-09] MEDS: OMEGA 3 ACID ETHYL ESTERS 1 GM CAPSULE PO SCH (09:14)
[2018-05-09] MEDS: BUDESONIDE/FORMOTEROL 160-4.5 INHALER 6 GM INH SCH ×2 (09:19→20:18)
[2018-05-09] MEDS: AZTREONAM 1,000 MG in SYRINGE 1 EACH IV SCH ×2 (09:21→20:16)
[2018-05-10] MEDS: methylPREDNISolone SOD SUC 40 MG/1 ML VIAL IV SCH ×4 (00:36→22:13)
[2018-05-10] MEDS: AZITHROMYCIN INJ 500 MG in SODIUM CHLORIDE 0.9% 250 ML IV SCH (00:36)
[2018-05-10] MEDS: ALBUTEROL/IPRATROPIUM 3 ML NEB RESP TX SCH ×6 (02:40→23:03)
[2018-05-10] MEDS: SODIUM CHLORIDE 0.9% 1,000 ML IV SCH (06:23)
[2018-05-10 06:34] LABS: Hematocrit 33.2 VOL% (35.7-47.0); Hemoglobin 11.1 GM/DL (12.0-16.0); Immature Granulocytes % 1.1 %; Immature Granulocytes Absolute 0.11 #; Lymphocytes # 0.2 10*3/uL (1.4-4.0); Lymphocytes % 1.7 % (21.3-54.2); Mean Corpuscular HGB Conc 33.4 GM/DL (32-36); Mean Corpuscular Hemoglobin 30 PG (27-34); Mean Corpuscular Volume 89.5 FL (87-102); Mean Platelet Volume 10.8 FL (9.6-12.0); Monocytes # 0.2 10*3/uL (0.11-0.8); Monocytes % 2.4 % (1.7-12.7); Neutrophils # 9.4 10*3/uL (1.4-7.4); Neutrophils % 94.8 % (38.7-73.9); Platelet Count 168 T/CUMM (130-400); Red Blood Count 3.71 MC/CUMM (3.8-5.5); Red Cell Distribution Width 13.2 % (9.3-17.3)
[2018-05-10 07:04] LABS: Calcium 7.9 MG/DL (8.5-10.1); Osmolality,Calculated 294.3 MOS/KG (273-304); Potassium 3.7 MMOL/L (3.5-5.1)
[2018-05-10 07:43] LABS: Lymphocytes 3 % (20-55); Segmented Neutrophils 97 % (50-85); Total Cells Counted 100
[2018-05-10 07:44] LABS: Platelet Estimate Normal
[2018-05-10] MEDS: DORNASE ALFA 2.5 MG/2.5 ML VIAL RESP TX SCH ×2 (07:45→19:15)
[2018-05-10] MEDS: ENOXAPARIN 40 MG/0.4 ML SYRINGE SUBCUT SCH (08:30)
[2018-05-10] MEDS: PANTOPRAZOLE 40 MG TABLET PO SCH (08:30)
[2018-05-10] MEDS: MULTIVITAMIN (CENTRUM) TABLET PO SCH (08:30)
[2018-05-10] MEDS: valACYclovir 500 MG TABLET PO SCH ×3 (08:30→21:32)
[2018-05-10] MEDS: DOXYCYCLINE HYCLATE 100 MG CAPSULE PO SCH ×2 (08:31→21:32)
[2018-05-10] MEDS: MONTELUKAST 10 MG TABLET PO SCH (08:31)
[2018-05-10] MEDS: NEBIVOLOL 10 MG TABLET PO SCH (08:31)
[2018-05-10] MEDS: FUROSEMIDE 20 MG/2 ML VIAL IV SCH (08:31)
[2018-05-10] MEDS: DILTIAZEM 60 MG TABLET PO SCH ×2 (08:31→21:32)
[2018-05-10] MEDS: guaiFENesin/DM ER 600-30 MG TABLET PO SCH (08:31)
[2018-05-10] MEDS: THEOPHYLLINE ER (24 HR) 300 MG CAPSULE PO SCH ×2 (08:31→21:32)
[2018-05-10] MEDS: INSULIN REGULAR 100 UNIT/ML SUBCUT SCH ×4 (08:32→21:35)
[2018-05-10] MEDS: ASPIRIN EC 81 MG TABLET PO SCH (08:32)
[2018-05-10] MEDS: CETIRIZINE 10 MG TABLET PO SCH (08:32)
[2018-05-10] MEDS: OMEGA 3 ACID ETHYL ESTERS 1 GM CAPSULE PO SCH (08:32)
[2018-05-10] MEDS: ROFLUMILAST 500 MCG TABLET PO SCH (08:32)
[2018-05-10] MEDS: AZTREONAM 1,000 MG in SYRINGE 1 EACH IV SCH ×2 (08:33→22:13)
[2018-05-10] MEDS: BUDESONIDE/FORMOTEROL 160-4.5 INHALER 6 GM INH SCH ×2 (09:58→21:35)
[2018-05-10] MEDS: guaiFENesin 200 MG/10 ML UDCUP PO PRN ×3 (10:02→21:32)
[2018-05-10] MEDS ORDERED: ALBUTEROL/IPRATROPIUM 3 ML NEB RESP TX PRN (10:10)
[2018-05-10] MEDS: INSULIN GLARGINE 100 UNIT/ML SUBCUT SCH (11:35)
[2018-05-11] MEDS: AZITHROMYCIN INJ 500 MG in SODIUM CHLORIDE 0.9% 250 ML IV SCH (00:25)
[2018-05-11] MEDS: methylPREDNISolone SOD SUC 40 MG/1 ML VIAL IV SCH ×3 (00:25→16:05)
[2018-05-11] MEDS: ALBUTEROL/IPRATROPIUM 3 ML NEB RESP TX SCH ×5 (03:10→19:46)
[2018-05-11 06:30] LABS: Hematocrit 34.5 VOL% (35.7-47.0); Hemoglobin 11.3 GM/DL (12.0-16.0); Immature Granulocytes % 0.9 %; Immature Granulocytes Absolute 0.06 #; Lymphocytes # 0.3 10*3/uL (1.4-4.0); Lymphocytes % 5.2 % (21.3-54.2); Mean Corpuscular HGB Conc 32.8 GM/DL (32-36); Mean Corpuscular Hemoglobin 30 PG (27-34); Mean Corpuscular Volume 91.5 FL (87-102); Mean Platelet Volume 10.5 FL (9.6-12.0); Monocytes # 0.2 10*3/uL (0.11-0.8); Monocytes % 3.3 % (1.7-12.7); Neutrophils % 90.6 % (38.7-73.9); Platelet Count 160 T/CUMM (130-400); Red Blood Count 3.77 MC/CUMM (3.8-5.5); White Blood Count 6.6 T/CUMM (4-12)
[2018-05-11 06:56] LABS: Calcium 7.9 MG/DL (8.5-10.1); Osmolality,Calculated 294.3 MOS/KG (273-304); Potassium 3.6 MMOL/L (3.5-5.1)
[2018-05-11] MEDS: DORNASE ALFA 2.5 MG/2.5 ML VIAL RESP TX SCH ×2 (08:24→19:46)
[2018-05-11] MEDS: valACYclovir 500 MG TABLET PO SCH ×3 (10:00→21:58)
[2018-05-11] MEDS: MONTELUKAST 10 MG TABLET PO SCH (10:00)
[2018-05-11] MEDS: PANTOPRAZOLE 40 MG TABLET PO SCH (10:00)
[2018-05-11] MEDS: NEBIVOLOL 10 MG TABLET PO SCH (10:01)
[2018-05-11] MEDS: THEOPHYLLINE ER (24 HR) 300 MG CAPSULE PO SCH ×2 (10:01→21:58)
[2018-05-11] MEDS: guaiFENesin/DM ER 600-30 MG TABLET PO SCH (10:01)
[2018-05-11] MEDS: ROFLUMILAST 500 MCG TABLET PO SCH (10:01)
[2018-05-11] MEDS: ASPIRIN EC 81 MG TABLET PO SCH (10:01)
[2018-05-11] MEDS: MULTIVITAMIN (CENTRUM) TABLET PO SCH (10:01)
[2018-05-11] MEDS: DOXYCYCLINE HYCLATE 100 MG CAPSULE PO SCH ×2 (10:01→21:58)
[2018-05-11] MEDS: DILTIAZEM 60 MG TABLET PO SCH ×2 (10:01→21:59)
[2018-05-11] MEDS: CETIRIZINE 10 MG TABLET PO SCH (10:02)
[2018-05-11] MEDS: OMEGA 3 ACID ETHYL ESTERS 1 GM CAPSULE PO SCH (10:02)
[2018-05-11] MEDS: ENOXAPARIN 40 MG/0.4 ML SYRINGE SUBCUT SCH (10:02)
[2018-05-11] MEDS: guaiFENesin 200 MG/10 ML UDCUP PO PRN ×3 (10:02→22:02)
[2018-05-11] MEDS: FUROSEMIDE 20 MG/2 ML VIAL IV SCH (10:02)
[2018-05-11] MEDS: INSULIN REGULAR 100 UNIT/ML SUBCUT SCH ×4 (10:04→21:59)
[2018-05-11] MEDS: AZTREONAM 1,000 MG in SYRINGE 1 EACH IV SCH ×2 (10:04→22:00)
[2018-05-11] MEDS: BUDESONIDE/FORMOTEROL 160-4.5 INHALER 6 GM INH SCH ×2 (10:05→22:00)
[2018-05-11] MEDS: INSULIN GLARGINE 100 UNIT/ML SUBCUT SCH (10:11)
[2018-05-11 15:01] LABS: Lymphocytes 4 % (20-55); Macrocytosis Slight; Platelet Estimate Adequate; Segmented Neutrophils 92 % (50-85); Total Cells Counted 100
[2018-05-12] MEDS: ALBUTEROL/IPRATROPIUM 3 ML NEB RESP TX SCH ×6 (00:24→19:40)
[2018-05-12] MEDS: methylPREDNISolone SOD SUC 40 MG/1 ML VIAL IV SCH ×2 (02:44→10:00)
[2018-05-12] MEDS: AZITHROMYCIN INJ 500 MG in SODIUM CHLORIDE 0.9% 250 ML IV SCH (02:44)
[2018-05-12 06:57] LABS: Potassium 3.5 MMOL/L (3.5-5.1)
[2018-05-12] MEDS: THEOPHYLLINE ER (24 HR) 300 MG CAPSULE PO SCH ×2 (09:00→21:48)
[2018-05-12] MEDS: DOXYCYCLINE HYCLATE 100 MG CAPSULE PO SCH ×2 (09:11→21:48)
[2018-05-12] MEDS: DILTIAZEM 60 MG TABLET PO SCH (09:11)
[2018-05-12] MEDS: OMEGA 3 ACID ETHYL ESTERS 1 GM CAPSULE PO SCH (09:13)
[2018-05-12] MEDS: MULTIVITAMIN (CENTRUM) TABLET PO SCH (09:13)
[2018-05-12] MEDS: ENOXAPARIN 40 MG/0.4 ML SYRINGE SUBCUT SCH (09:13)
[2018-05-12] MEDS: CETIRIZINE 10 MG TABLET PO SCH (09:13)
[2018-05-12] MEDS: FUROSEMIDE 20 MG/2 ML VIAL IV SCH (09:13)
[2018-05-12] MEDS: MONTELUKAST 10 MG TABLET PO SCH (09:13)
[2018-05-12] MEDS: NEBIVOLOL 10 MG TABLET PO SCH (09:13)
[2018-05-12] MEDS: PANTOPRAZOLE 40 MG TABLET PO SCH (09:13)
[2018-05-12] MEDS: ASPIRIN EC 81 MG TABLET PO SCH (09:13)
[2018-05-12] MEDS: guaiFENesin/DM ER 600-30 MG TABLET PO SCH (09:13)
[2018-05-12] MEDS: INSULIN GLARGINE 100 UNIT/ML SUBCUT SCH (09:14)
[2018-05-12] MEDS: AZTREONAM 1,000 MG in SYRINGE 1 EACH IV SCH (09:15)
[2018-05-12] MEDS: ROFLUMILAST 500 MCG TABLET PO SCH (09:19)
[2018-05-12] MEDS: INSULIN REGULAR 100 UNIT/ML SUBCUT SCH ×4 (09:20→21:52)
[2018-05-12] MEDS: BUDESONIDE/FORMOTEROL 160-4.5 INHALER 6 GM INH SCH ×2 (09:26→22:47)
[2018-05-12] MEDS: valACYclovir 500 MG TABLET PO SCH ×3 (12:11→21:48)
[2018-05-13] MEDS: methylPREDNISolone SOD SUC 40 MG/1 ML VIAL IV SCH ×4 (00:02→21:47)
[2018-05-13] MEDS: guaiFENesin 200 MG/10 ML UDCUP PO PRN ×3 (01:05→22:00)
[2018-05-13] MEDS: ALBUTEROL/IPRATROPIUM 3 ML NEB RESP TX SCH ×3 (01:41→07:00)
[2018-05-13] MEDS: AZITHROMYCIN INJ 500 MG in SODIUM CHLORIDE 0.9% 250 ML IV SCH (02:30)
[2018-05-13] MEDS: DILTIAZEM 60 MG TABLET PO SCH (03:31)
[2018-05-13] MEDS: AZTREONAM 1,000 MG in SYRINGE 1 EACH IV SCH ×2 (03:42→16:17)
[2018-05-13 04:50] LABS: Basophils % 0.1 % (0.0-0.8); Eosinophils # 0.1 10*3/uL (0.0-0.87); Eosinophils % 0.6 % (0.00-10.9); Hematocrit 36.3 VOL% (35.7-47.0); Hemoglobin 11.5 GM/DL (12.0-16.0); Immature Granulocytes % 0.6 %; Immature Granulocytes Absolute 0.06 #; Lymphocytes % 29.1 % (21.3-54.2); Mean Corpuscular HGB Conc 31.7 GM/DL (32-36); Mean Corpuscular Hemoglobin 30 PG (27-34); Mean Corpuscular Volume 95.3 FL (87-102); Mean Platelet Volume 11.5 FL (9.6-12.0); Monocytes # 0.4 10*3/uL (0.11-0.8); Monocytes % 4.2 % (1.7-12.7); Neutrophils # 6.7 10*3/uL (1.4-7.4); Neutrophils % 65.4 % (38.7-73.9); Platelet Count 136 T/CUMM (130-400); Red Blood Count 3.81 MC/CUMM (3.8-5.5); Red Cell Distribution Width 13.1 % (9.3-17.3); White Blood Count 10.2 T/CUMM (4-12)
[2018-05-13 04:57] LABS: Calcium 8.4 MG/DL (8.5-10.1); Osmolality,Calculated 289.1 MOS/KG (273-304); Potassium 3.4 MMOL/L (3.5-5.1)
[2018-05-13] MEDS ORDERED: LEVALBUTEROL 1.25 MG/3 ML NEB RESP TX ONE (05:02)
[2018-05-13 05:12] LABS: Lymphocytes 38 % (20-55); Platelet Estimate Normal; Segmented Neutrophils 59 % (50-85); Total Cells Counted 100
[2018-05-13] MEDS ORDERED: AMIODARONE INJ 150 MG in DEXTROSE 5% 100 ML IV ONE (05:13)
[2018-05-13] MEDS ORDERED: LORazepam 2 MG/1 ML VIAL IV ONE (05:16)
[2018-05-13 05:22] LABS: ABG Base Excess 2.2 MMOL/L (-2.5-2.5); ABG HCO3 26.3 MMOL/L (20-26); ABG Oxygen Saturation 96.7 % (95-100); ABG PCO2 41.7 MM HG (35-48); ABG PH 7.418 (7.35-7.45); ABG PO2 90.3 MM HG (80-95); ABG TCO2 23.8 MMOL/L (23-27); Allen Test Positive
[2018-05-13] MEDS ORDERED: AMIODARONE INJ 450 MG in DEXTROSE 5% 241 ML IV SCH ×2 (05:30→11:30)
[2018-05-13 05:31] LABS: Macrocytosis 1+
[2018-05-13 06:02] LABS: Troponin I 0.067 NG/ML (0.00-0.045)
[2018-05-13] MEDS: guaiFENesin/DM ER 600-30 MG TABLET PO SCH (09:52)
[2018-05-13] MEDS: valACYclovir 500 MG TABLET PO SCH ×3 (09:52→21:46)
[2018-05-13] MEDS: MULTIVITAMIN (CENTRUM) TABLET PO SCH (09:52)
[2018-05-13] MEDS: DOXYCYCLINE HYCLATE 100 MG CAPSULE PO SCH ×2 (09:52→22:00)
[2018-05-13] MEDS: MONTELUKAST 10 MG TABLET PO SCH (09:52)
[2018-05-13] MEDS: NEBIVOLOL 10 MG TABLET PO SCH ×2 (09:52→21:47)
[2018-05-13] MEDS: CETIRIZINE 10 MG TABLET PO SCH (09:53)
[2018-05-13] MEDS: THEOPHYLLINE ER (24 HR) 300 MG CAPSULE PO SCH ×2 (09:53→21:47)
[2018-05-13] MEDS: INSULIN GLARGINE 100 UNIT/ML SUBCUT SCH (09:53)
[2018-05-13] MEDS: ROFLUMILAST 500 MCG TABLET PO SCH (09:53)
[2018-05-13] MEDS: ASPIRIN EC 81 MG TABLET PO SCH (09:53)
[2018-05-13] MEDS: OMEGA 3 ACID ETHYL ESTERS 1 GM CAPSULE PO SCH (09:53)
[2018-05-13] MEDS: PANTOPRAZOLE 40 MG TABLET PO SCH (09:53)
[2018-05-13] MEDS: INSULIN REGULAR 100 UNIT/ML SUBCUT SCH ×4 (09:54→22:00)
[2018-05-13] MEDS: ENOXAPARIN 40 MG/0.4 ML SYRINGE SUBCUT SCH (09:56)
[2018-05-13] MEDS: BUDESONIDE/FORMOTEROL 160-4.5 INHALER 6 GM INH SCH ×2 (10:06→22:01)
[2018-05-13] MEDS: FUROSEMIDE 20 MG/2 ML VIAL IV SCH (10:17)
[2018-05-13] MEDS: FLUTICASONE 50 MCG NASAL SPRAY 16 GM BOTTLE BOTH NARES SCH ×2 (10:20→21:47)
[2018-05-13] MEDS: POTASSIUM CHLORIDE 20 MEQ TABLET PO SCH (12:23)
[2018-05-13] MEDS: IPRATROPIUM 500 MCG/2.5 ML NEB RESP TX SCH ×2 (13:45→20:05)
[2018-05-13] MEDS: ALBUTEROL 1.25 MG/3 ML NEB RESP TX SCH ×2 (13:45→20:05)
[2018-05-13] MEDS: ASCORBIC ACID 500 MG TABLET PO SCH ×2 (16:16→21:46)
[2018-05-13] MEDS: APIXABAN 5 MG TABLET PO SCH (21:47)
[2018-05-14] MEDS: IPRATROPIUM 500 MCG/2.5 ML NEB RESP TX SCH ×4 (01:04→20:42)
[2018-05-14] MEDS: ALBUTEROL 1.25 MG/3 ML NEB RESP TX SCH ×4 (01:04→20:42)
[2018-05-14] MEDS: AZTREONAM 1,000 MG in SYRINGE 1 EACH IV SCH ×2 (02:59→15:26)
[2018-05-14 05:46] LABS: Hematocrit 37.2 VOL% (35.7-47.0); Hemoglobin 12.1 GM/DL (12.0-16.0); Immature Granulocytes % 0.8 %; Immature Granulocytes Absolute 0.06 #; Lymphocytes % 12.2 % (21.3-54.2); Mean Corpuscular HGB Conc 32.5 GM/DL (32-36); Mean Corpuscular Hemoglobin 30 PG (27-34); Mean Corpuscular Volume 91.4 FL (87-102); Mean Platelet Volume 10.5 FL (9.6-12.0); Monocytes # 0.2 10*3/uL (0.11-0.8); Monocytes % 2.9 % (1.7-12.7); Neutrophils # 6.7 10*3/uL (1.4-7.4); Neutrophils % 84.1 % (38.7-73.9); Platelet Count 167 T/CUMM (130-400); Red Blood Count 4.07 MC/CUMM (3.8-5.5)
[2018-05-14 06:14] LABS: Calcium 8.5 MG/DL (8.5-10.1); Osmolality,Calculated 286.5 MOS/KG (273-304); Potassium 3.5 MMOL/L (3.5-5.1); Risk Ratio 3.18; VLDL CHOLESTEROL 29.6 MG/DL
[2018-05-14] MEDS ORDERED: AMIODARONE INJ 450 MG in DEXTROSE 5% 241 ML IV SCH (06:30)
[2018-05-14] MEDS ORDERED: POTASSIUM CHLORIDE 20 MEQ TABLET PO ONE (06:54)
[2018-05-14] MEDS: OMEGA 3 ACID ETHYL ESTERS 1 GM CAPSULE PO SCH (09:12)
[2018-05-14] MEDS: DOXYCYCLINE HYCLATE 100 MG CAPSULE PO SCH ×2 (09:13→20:43)
[2018-05-14] MEDS: guaiFENesin/DM ER 600-30 MG TABLET PO SCH (09:13)
[2018-05-14] MEDS: NEBIVOLOL 10 MG TABLET PO SCH ×2 (09:14→20:42)
[2018-05-14] MEDS: valACYclovir 500 MG TABLET PO SCH ×3 (09:15→20:43)
[2018-05-14] MEDS: THEOPHYLLINE ER (24 HR) 300 MG CAPSULE PO SCH ×2 (09:15→20:43)
[2018-05-14] MEDS: ROFLUMILAST 500 MCG TABLET PO SCH (09:16)
[2018-05-14] MEDS: PANTOPRAZOLE 40 MG TABLET PO SCH (09:16)
[2018-05-14] MEDS: POTASSIUM CHLORIDE 20 MEQ TABLET PO SCH (09:16)
[2018-05-14] MEDS: ASPIRIN EC 81 MG TABLET PO SCH (09:16)
[2018-05-14] MEDS: MONTELUKAST 10 MG TABLET PO SCH (09:16)
[2018-05-14] MEDS: CETIRIZINE 10 MG TABLET PO SCH (09:16)
[2018-05-14] MEDS: ASCORBIC ACID 500 MG TABLET PO SCH ×2 (09:16→20:43)
[2018-05-14] MEDS: MULTIVITAMIN (CENTRUM) TABLET PO SCH (09:16)
[2018-05-14] MEDS: INSULIN REGULAR 100 UNIT/ML SUBCUT SCH ×4 (09:17→23:33)
[2018-05-14] MEDS: APIXABAN 5 MG TABLET PO SCH ×2 (09:17→20:43)
[2018-05-14] MEDS: INSULIN GLARGINE 100 UNIT/ML SUBCUT SCH (09:18)
[2018-05-14] MEDS: BUDESONIDE/FORMOTEROL 160-4.5 INHALER 6 GM INH SCH ×2 (09:18→20:43)
[2018-05-14] MEDS: FLUTICASONE 50 MCG NASAL SPRAY 16 GM BOTTLE BOTH NARES SCH ×2 (09:18→20:43)
[2018-05-14] MEDS: FUROSEMIDE 20 MG/2 ML VIAL IV SCH (09:21)
[2018-05-14] MEDS: methylPREDNISolone SOD SUC 40 MG/1 ML VIAL IV SCH ×2 (09:25→23:34)
[2018-05-14] MEDS: ROSUVASTATIN 10 MG TABLET PO SCH (20:43)
[2018-05-14] MEDS: amLODIPine 5 MG TABLET PO SCH (23:33)
[2018-05-15] MEDS: ALBUTEROL 1.25 MG/3 ML NEB RESP TX SCH ×4 (00:31→19:26)
[2018-05-15] MEDS: IPRATROPIUM 500 MCG/2.5 ML NEB RESP TX SCH ×4 (00:31→19:26)
[2018-05-15] MEDS: AZTREONAM 1,000 MG in SYRINGE 1 EACH IV SCH ×2 (04:45→14:56)
[2018-05-15 05:57] LABS: Basophils % 0.1 % (0.0-0.8); Eosinophils % 0.1 % (0.00-10.9); Hematocrit 37.6 VOL% (35.7-47.0); Hemoglobin 12.3 GM/DL (12.0-16.0); Immature Granulocytes % 0.7 %; Immature Granulocytes Absolute 0.06 #; Lymphocytes % 10.8 % (21.3-54.2); Mean Corpuscular HGB Conc 32.7 GM/DL (32-36); Mean Corpuscular Hemoglobin 30 PG (27-34); Monocytes # 0.2 10*3/uL (0.11-0.8); Monocytes % 2.6 % (1.7-12.7); Neutrophils # 7.7 10*3/uL (1.4-7.4); Neutrophils % 85.7 % (38.7-73.9); Platelet Count 175 T/CUMM (130-400); Red Blood Count 4.13 MC/CUMM (3.8-5.5); White Blood Count 8.9 T/CUMM (4-12)
[2018-05-15 06:19] LABS: Calcium 8.3 MG/DL (8.5-10.1); Osmolality,Calculated 293.1 MOS/KG (273-304); Potassium 3.7 MMOL/L (3.5-5.1)
[2018-05-15 06:21] LABS: Calcium 8.5 MG/DL (8.5-10.1); Osmolality,Calculated 290.4 MOS/KG (273-304); Potassium 3.6 MMOL/L (3.5-5.1)
[2018-05-15] MEDS: methylPREDNISolone SOD SUC 40 MG/1 ML VIAL IV SCH (07:58)
[2018-05-15] MEDS: MONTELUKAST 10 MG TABLET PO SCH (08:01)
[2018-05-15] MEDS: OMEGA 3 ACID ETHYL ESTERS 1 GM CAPSULE PO SCH (08:01)
[2018-05-15] MEDS: ASCORBIC ACID 500 MG TABLET PO SCH ×2 (08:01→21:30)
[2018-05-15] MEDS: DOXYCYCLINE HYCLATE 100 MG CAPSULE PO SCH ×2 (08:01→21:29)
[2018-05-15] MEDS: APIXABAN 5 MG TABLET PO SCH ×2 (08:01→21:30)
[2018-05-15] MEDS: PANTOPRAZOLE 40 MG TABLET PO SCH (08:01)
[2018-05-15] MEDS: MULTIVITAMIN (CENTRUM) TABLET PO SCH (08:02)
[2018-05-15] MEDS: NEBIVOLOL 10 MG TABLET PO SCH ×2 (08:02→21:29)
[2018-05-15] MEDS: POTASSIUM CHLORIDE 20 MEQ TABLET PO SCH (08:02)
[2018-05-15] MEDS: amLODIPine 5 MG TABLET PO SCH (08:02)
[2018-05-15] MEDS: guaiFENesin/DM ER 600-30 MG TABLET PO SCH (08:02)
[2018-05-15] MEDS: valACYclovir 500 MG TABLET PO SCH ×3 (08:02→21:29)
[2018-05-15] MEDS: CETIRIZINE 10 MG TABLET PO SCH (08:02)
[2018-05-15] MEDS: INSULIN GLARGINE 100 UNIT/ML SUBCUT SCH (08:03)
[2018-05-15] MEDS: ASPIRIN EC 81 MG TABLET PO SCH (08:03)
[2018-05-15] MEDS: INSULIN REGULAR 100 UNIT/ML SUBCUT SCH ×4 (08:04→21:28)
[2018-05-15] MEDS: BUDESONIDE/FORMOTEROL 160-4.5 INHALER 6 GM INH SCH ×2 (08:04→21:50)
[2018-05-15] MEDS: THEOPHYLLINE ER (24 HR) 300 MG CAPSULE PO SCH ×2 (08:04→21:30)
[2018-05-15] MEDS: FLUTICASONE 50 MCG NASAL SPRAY 16 GM BOTTLE BOTH NARES SCH ×2 (08:05→21:49)
[2018-05-15] MEDS: FUROSEMIDE 20 MG/2 ML VIAL IV SCH (08:05)
[2018-05-15] MEDS: ROFLUMILAST 500 MCG TABLET PO SCH (08:15)
[2018-05-15] MEDS ORDERED: INSULIN GLARGINE 100 UNIT/ML SUBCUT SCH (13:46)
[2018-05-15] MEDS: ROSUVASTATIN 10 MG TABLET PO SCH (21:29)
[2018-05-15] MEDS: guaiFENesin 200 MG/10 ML UDCUP PO PRN (21:39)
[2018-05-16] MEDS: ALBUTEROL 1.25 MG/3 ML NEB RESP TX SCH ×4 (00:10→20:33)
[2018-05-16] MEDS: IPRATROPIUM 500 MCG/2.5 ML NEB RESP TX SCH ×4 (00:10→20:33)
[2018-05-16] MEDS: AZTREONAM 1,000 MG in SYRINGE 1 EACH IV SCH ×2 (02:04→16:13)
[2018-05-16 04:31] LABS: Eosinophils # 0.1 10*3/uL (0.0-0.87); Eosinophils % 1.5 % (0.00-10.9); Hematocrit 37.1 VOL% (35.7-47.0); Hemoglobin 12.1 GM/DL (12.0-16.0); Immature Granulocytes % 0.5 %; Immature Granulocytes Absolute 0.05 #; Lymphocytes # 2.5 10*3/uL (1.4-4.0); Lymphocytes % 27.4 % (21.3-54.2); Mean Corpuscular HGB Conc 32.6 GM/DL (32-36); Mean Corpuscular Hemoglobin 29 PG (27-34); Mean Corpuscular Volume 89.6 FL (87-102); Mean Platelet Volume 9.9 FL (9.6-12.0); Monocytes # 0.4 10*3/uL (0.11-0.8); Monocytes % 4.5 % (1.7-12.7); Neutrophils # 6.1 10*3/uL (1.4-7.4); Neutrophils % 66.1 % (38.7-73.9); Platelet Count 175 T/CUMM (130-400); Red Blood Count 4.14 MC/CUMM (3.8-5.5); Red Cell Distribution Width 13.1 % (9.3-17.3); White Blood Count 9.2 T/CUMM (4-12)
[2018-05-16 04:47] LABS: Calcium 8.3 MG/DL (8.5-10.1); Osmolality,Calculated 293.7 MOS/KG (273-304); Potassium 3.4 MMOL/L (3.5-5.1)
[2018-05-16] MEDS: methylPREDNISolone SOD SUC 40 MG/1 ML VIAL IV SCH ×3 (06:02→21:15)
[2018-05-16] MEDS ORDERED: PROMETHAZINE 25 MG/1 ML VIAL IM ONE (07:37)
[2018-05-16] MEDS: INSULIN REGULAR 100 UNIT/ML SUBCUT SCH ×4 (08:00→21:17)
[2018-05-16] MEDS: valACYclovir 500 MG TABLET PO SCH ×3 (08:00→21:16)
[2018-05-16] MEDS ORDERED: LIDOCAINE 1% 20 ML VIAL MISC INJ ONE (08:02)
[2018-05-16] MEDS ORDERED: MIDAZOLAM 10 MG/2 ML VIAL IV ONE (08:02)
[2018-05-16] MEDS ORDERED: LIDOCAINE 2% 20 ML VIAL RESP TX ONE (08:02)
[2018-05-16] MEDS ORDERED: MIDAZOLAM 2 MG/2 ML VIAL ONE (09:25)
[2018-05-16] MEDS: amLODIPine 5 MG TABLET PO SCH (12:33)
[2018-05-16] MEDS: guaiFENesin/DM ER 600-30 MG TABLET PO SCH (12:33)
[2018-05-16] MEDS: OMEGA 3 ACID ETHYL ESTERS 1 GM CAPSULE PO SCH (12:34)
[2018-05-16] MEDS: DOXYCYCLINE HYCLATE 100 MG CAPSULE PO SCH ×2 (12:34→21:17)
[2018-05-16] MEDS: ASCORBIC ACID 500 MG TABLET PO SCH ×2 (12:34→21:17)
[2018-05-16] MEDS: MONTELUKAST 10 MG TABLET PO SCH (12:34)
[2018-05-16] MEDS: NEBIVOLOL 10 MG TABLET PO SCH ×2 (12:34→21:17)
[2018-05-16] MEDS: CETIRIZINE 10 MG TABLET PO SCH (12:35)
[2018-05-16] MEDS: POTASSIUM CHLORIDE 20 MEQ TABLET PO SCH (12:35)
[2018-05-16] MEDS: MULTIVITAMIN (CENTRUM) TABLET PO SCH (12:35)
[2018-05-16] MEDS: APIXABAN 5 MG TABLET PO SCH ×2 (12:35→21:17)
[2018-05-16] MEDS: PANTOPRAZOLE 40 MG TABLET PO SCH (12:36)
[2018-05-16] MEDS: ASPIRIN EC 81 MG TABLET PO SCH (12:36)
[2018-05-16] MEDS: FUROSEMIDE 20 MG/2 ML VIAL IV SCH (12:36)
[2018-05-16] MEDS: THEOPHYLLINE ER (24 HR) 300 MG CAPSULE PO SCH ×2 (12:36→21:17)
[2018-05-16] MEDS: ROFLUMILAST 500 MCG TABLET PO SCH (12:39)
[2018-05-16] MEDS: BUDESONIDE/FORMOTEROL 160-4.5 INHALER 6 GM INH SCH ×2 (12:42→21:18)
[2018-05-16] MEDS: FLUTICASONE 50 MCG NASAL SPRAY 16 GM BOTTLE BOTH NARES SCH ×2 (12:42→21:18)
[2018-05-16] MEDS ORDERED: POTASSIUM CHLORIDE 10 MEQ TABLET PO ONE (12:51)
[2018-05-16] MEDS ORDERED: MAGNESIUM SULF RIDER 2 GM in PREMIX 1 EACH IV PRN (13:35)
[2018-05-16] MEDS ORDERED: MAGNESIUM SULF RIDER 4 GM in PREMIX 1 EACH IV PRN (13:35)
[2018-05-16] MEDS: DORNASE ALFA 2.5 MG/2.5 ML VIAL RESP TX SCH (20:33)
[2018-05-16] MEDS: INSULIN GLARGINE 100 UNIT/ML SUBCUT SCH (21:16)
[2018-05-16] MEDS: ROSUVASTATIN 10 MG TABLET PO SCH (21:17)
[2018-05-17] MEDS: ALBUTEROL 1.25 MG/3 ML NEB RESP TX SCH ×4 (01:14→19:20)
[2018-05-17] MEDS: IPRATROPIUM 500 MCG/2.5 ML NEB RESP TX SCH ×4 (01:14→19:20)
[2018-05-17] MEDS: guaiFENesin 200 MG/10 ML UDCUP PO PRN (02:56)
[2018-05-17] MEDS: AZTREONAM 1,000 MG in SYRINGE 1 EACH IV SCH ×2 (03:00→15:01)
[2018-05-17] MEDS: DORNASE ALFA 2.5 MG/2.5 ML VIAL RESP TX SCH ×2 (06:57→19:32)
[2018-05-17 09:31] LABS: Calcium 8.8 MG/DL (8.5-10.1); Osmolality,Calculated 287.7 MOS/KG (273-304)
[2018-05-17] MEDS: guaiFENesin/DM ER 600-30 MG TABLET PO SCH (09:53)
[2018-05-17] MEDS: PANTOPRAZOLE 40 MG TABLET PO SCH (09:53)
[2018-05-17] MEDS: DOXYCYCLINE HYCLATE 100 MG CAPSULE PO SCH ×2 (09:54→22:25)
[2018-05-17] MEDS: CETIRIZINE 10 MG TABLET PO SCH (09:54)
[2018-05-17] MEDS: THEOPHYLLINE ER (24 HR) 300 MG CAPSULE PO SCH ×2 (09:54→22:25)
[2018-05-17] MEDS: NEBIVOLOL 10 MG TABLET PO SCH ×2 (09:54→22:25)
[2018-05-17] MEDS: valACYclovir 500 MG TABLET PO SCH ×3 (09:54→22:25)
[2018-05-17] MEDS: MONTELUKAST 10 MG TABLET PO SCH (09:54)
[2018-05-17] MEDS: MULTIVITAMIN (CENTRUM) TABLET PO SCH (09:54)
[2018-05-17] MEDS: OMEGA 3 ACID ETHYL ESTERS 1 GM CAPSULE PO SCH (09:55)
[2018-05-17] MEDS: APIXABAN 5 MG TABLET PO SCH ×2 (09:55→22:25)
[2018-05-17] MEDS: ASCORBIC ACID 500 MG TABLET PO SCH ×2 (09:55→22:25)
[2018-05-17] MEDS: ASPIRIN EC 81 MG TABLET PO SCH (09:56)
[2018-05-17] MEDS: POTASSIUM CHLORIDE 20 MEQ TABLET PO SCH (09:56)
[2018-05-17] MEDS: amLODIPine 5 MG TABLET PO SCH (09:56)
[2018-05-17] MEDS: FLUTICASONE 50 MCG NASAL SPRAY 16 GM BOTTLE BOTH NARES SCH ×2 (09:56→22:27)
[2018-05-17] MEDS: ROFLUMILAST 500 MCG TABLET PO SCH (09:56)
[2018-05-17] MEDS: BUDESONIDE/FORMOTEROL 160-4.5 INHALER 6 GM INH SCH ×2 (09:57→22:27)
[2018-05-17] MEDS: methylPREDNISolone SOD SUC 125 MG/2 ML VIAL IV SCH ×2 (09:58→18:36)
[2018-05-17] MEDS: INSULIN GLARGINE 100 UNIT/ML SUBCUT SCH ×2 (10:02→22:26)
[2018-05-17] MEDS: FUROSEMIDE 20 MG/2 ML VIAL IV SCH (10:02)
[2018-05-17] MEDS: INSULIN REGULAR 100 UNIT/ML SUBCUT SCH ×4 (10:03→22:26)
[2018-05-17] MEDS: ROSUVASTATIN 10 MG TABLET PO SCH (22:25)
[2018-05-18] MEDS: ALBUTEROL 1.25 MG/3 ML NEB RESP TX SCH ×4 (00:36→19:06)
[2018-05-18] MEDS: IPRATROPIUM 500 MCG/2.5 ML NEB RESP TX SCH ×4 (00:36→19:06)
[2018-05-18] MEDS: guaiFENesin 200 MG/10 ML UDCUP PO PRN (01:50)
[2018-05-18] MEDS: AZTREONAM 1,000 MG in SYRINGE 1 EACH IV SCH ×2 (02:17→14:06)
[2018-05-18] MEDS: methylPREDNISolone SOD SUC 125 MG/2 ML VIAL IV SCH ×3 (02:20→18:52)
[2018-05-18] MEDS: DORNASE ALFA 2.5 MG/2.5 ML VIAL RESP TX SCH ×2 (07:15→19:06)
[2018-05-18] MEDS: valACYclovir 500 MG TABLET PO SCH ×3 (11:19→21:03)
[2018-05-18] MEDS: NEBIVOLOL 10 MG TABLET PO SCH ×2 (11:20→21:02)
[2018-05-18] MEDS: THEOPHYLLINE ER (24 HR) 300 MG CAPSULE PO SCH ×2 (11:20→21:02)
[2018-05-18] MEDS: amLODIPine 5 MG TABLET PO SCH (11:20)
[2018-05-18] MEDS: DOXYCYCLINE HYCLATE 100 MG CAPSULE PO SCH ×2 (11:20→21:02)
[2018-05-18] MEDS: OMEGA 3 ACID ETHYL ESTERS 1 GM CAPSULE PO SCH (11:20)
[2018-05-18] MEDS: ASCORBIC ACID 500 MG TABLET PO SCH ×2 (11:21→21:02)
[2018-05-18] MEDS: ROFLUMILAST 500 MCG TABLET PO SCH (11:21)
[2018-05-18] MEDS: MULTIVITAMIN (CENTRUM) TABLET PO SCH (11:21)
[2018-05-18] MEDS: POTASSIUM CHLORIDE 20 MEQ TABLET PO SCH (11:22)
[2018-05-18] MEDS: ASPIRIN EC 81 MG TABLET PO SCH (11:22)
[2018-05-18] MEDS: PANTOPRAZOLE 40 MG TABLET PO SCH (11:22)
[2018-05-18] MEDS: APIXABAN 5 MG TABLET PO SCH ×2 (11:22→21:02)
[2018-05-18] MEDS: CETIRIZINE 10 MG TABLET PO SCH (11:22)
[2018-05-18] MEDS: MONTELUKAST 10 MG TABLET PO SCH (11:23)
[2018-05-18] MEDS: guaiFENesin/DM ER 600-30 MG TABLET PO SCH (11:23)
[2018-05-18] MEDS: BUDESONIDE/FORMOTEROL 160-4.5 INHALER 6 GM INH SCH (11:23)
[2018-05-18] MEDS: FLUTICASONE 50 MCG NASAL SPRAY 16 GM BOTTLE BOTH NARES SCH ×2 (11:24→21:04)
[2018-05-18] MEDS: FUROSEMIDE 20 MG/2 ML VIAL IV SCH (11:24)
[2018-05-18] MEDS: INSULIN REGULAR 100 UNIT/ML SUBCUT SCH ×4 (11:27→21:03)
[2018-05-18] MEDS: INSULIN GLARGINE 100 UNIT/ML SUBCUT SCH ×2 (11:28→21:04)
[2018-05-18] MEDS: NYSTATIN 500,000 UNIT/5 ML UDCUP SWISH/SWAL SCH ×3 (13:53→21:04)
[2018-05-18] MEDS: ROSUVASTATIN 10 MG TABLET PO SCH (21:03)
[2018-05-19] MEDS: IPRATROPIUM 500 MCG/2.5 ML NEB RESP TX SCH ×3 (00:18→14:24)
[2018-05-19] MEDS: ALBUTEROL 1.25 MG/3 ML NEB RESP TX SCH ×3 (00:18→14:24)
[2018-05-19] MEDS: methylPREDNISolone SOD SUC 125 MG/2 ML VIAL IV SCH ×2 (02:35→10:41)
[2018-05-19] MEDS: AZTREONAM 1,000 MG in SYRINGE 1 EACH IV SCH ×2 (02:38→14:25)
[2018-05-19] MEDS: BUDESONIDE/FORMOTEROL 160-4.5 INHALER 6 GM INH SCH ×2 (02:49→10:45)
[2018-05-19 02:53] LABS: Hematocrit 34.2 VOL% (35.7-47.0); Hemoglobin 11.5 GM/DL (12.0-16.0); Immature Granulocytes % 1.1 %; Immature Granulocytes Absolute 0.14 #; Lymphocytes % 7.9 % (21.3-54.2); Mean Corpuscular HGB Conc 33.6 GM/DL (32-36); Mean Corpuscular Hemoglobin 30 PG (27-34); Mean Corpuscular Volume 87.9 FL (87-102); Mean Platelet Volume 9.9 FL (9.6-12.0); Monocytes # 0.5 10*3/uL (0.11-0.8); Monocytes % 3.5 % (1.7-12.7); Neutrophils # 11.4 10*3/uL (1.4-7.4); Neutrophils % 87.5 % (38.7-73.9); Platelet Count 207 T/CUMM (130-400); Red Blood Count 3.89 MC/CUMM (3.8-5.5); Red Cell Distribution Width 13.4 % (9.3-17.3); White Blood Count 13.1 T/CUMM (4-12)
[2018-05-19 03:11] LABS: Calcium 8.9 MG/DL (8.5-10.1); Osmolality,Calculated 292.5 MOS/KG (273-304); Potassium 4.2 MMOL/L (3.5-5.1)
[2018-05-19] MEDS: NYSTATIN 500,000 UNIT/5 ML UDCUP SWISH/SWAL SCH ×2 (10:41→14:21)
[2018-05-19] MEDS: OMEGA 3 ACID ETHYL ESTERS 1 GM CAPSULE PO SCH (10:41)
[2018-05-19] MEDS: PANTOPRAZOLE 40 MG TABLET PO SCH (10:41)
[2018-05-19] MEDS: INSULIN REGULAR 100 UNIT/ML SUBCUT SCH ×2 (10:41→12:47)
[2018-05-19] MEDS: valACYclovir 500 MG TABLET PO SCH ×2 (10:42→14:36)
[2018-05-19] MEDS: MULTIVITAMIN (CENTRUM) TABLET PO SCH (10:42)
[2018-05-19] MEDS: THEOPHYLLINE ER (24 HR) 300 MG CAPSULE PO SCH (10:42)
[2018-05-19] MEDS: FUROSEMIDE 20 MG/2 ML VIAL IV SCH (10:42)
[2018-05-19] MEDS: DOXYCYCLINE HYCLATE 100 MG CAPSULE PO SCH (10:43)
[2018-05-19] MEDS: APIXABAN 5 MG TABLET PO SCH (10:43)
[2018-05-19] MEDS: POTASSIUM CHLORIDE 20 MEQ TABLET PO SCH (10:43)
[2018-05-19] MEDS: ASCORBIC ACID 500 MG TABLET PO SCH (10:43)
[2018-05-19] MEDS: guaiFENesin 200 MG/10 ML UDCUP PO PRN (10:43)
[2018-05-19] MEDS: amLODIPine 5 MG TABLET PO SCH (10:43)
[2018-05-19] MEDS: CETIRIZINE 10 MG TABLET PO SCH (10:43)
[2018-05-19] MEDS: MONTELUKAST 10 MG TABLET PO SCH (10:44)
[2018-05-19] MEDS: ASPIRIN EC 81 MG TABLET PO SCH (10:44)
[2018-05-19] MEDS: NEBIVOLOL 10 MG TABLET PO SCH (10:44)
[2018-05-19] MEDS: FLUTICASONE 50 MCG NASAL SPRAY 16 GM BOTTLE BOTH NARES SCH (10:45)
[2018-05-19] MEDS: INSULIN GLARGINE 100 UNIT/ML SUBCUT SCH (10:51)
[2018-05-19] MEDS: guaiFENesin/DM ER 600-30 MG TABLET PO SCH (10:52)
[2018-05-19] MEDS: ROFLUMILAST 500 MCG TABLET PO SCH (11:18)
[2018-05-19 12:04] VITALS: BP 134/68
== END 2018-05-19 13:12 | DRG 192 ==
LOC: N.ED 16:51 → N.EDINP 21:34 → SUATTDRO 21:34 → N.5E 22:37 → N.TELEN 05-12 21:43
PROVIDERS: ADMIT Internal Medicine; ATTEND Internal Medicine

== ENCOUNTER 2020-05-09 12:10 | Inpatient (IN) ==
[2020-05-09 13:52] LABS: Basophils % 0.2 % (0.0-0.8); Hematocrit 31.9 VOL% (35.7-47.0); Hemoglobin 10.4 GM/DL (12.0-16.0); Immature Granulocytes % 0.6 %; Immature Granulocytes Absolute 0.08 #; Lymphocytes # 0.9 10*3/uL (1.4-4.0); Lymphocytes % 6.4 % (21.3-54.2); Mean Corpuscular HGB Conc 32.6 GM/DL (32-36); Mean Corpuscular Volume 93.5 FL (87-102); Mean Platelet Volume 9.9 FL (9.6-12.0); Monocytes % 5.5 % (1.7-12.7); Neutrophils % 87.3 % (38.7-73.9); Platelet Count 214 T/CUMM (130-400); Red Blood Count 3.41 MC/CUMM (3.8-5.5); Red Cell Distribution Width 12.4 % (9.3-17.3); White Blood Count 13.4 T/CUMM (4-12)
[2020-05-09 14:00] LABS: Albumin 3.5 G/DL (3.4-5.0); Bilirubin,Total 0.5 MG/DL (0.2-1.0); Calcium 9.2 MG/DL (8.5-10.1); Osmolality,Calculated 286.3 MOS/KG (273-304); Total Protein 6.9 G/DL (6.4-8.3)
[2020-05-09 14:09] LABS: PT Patient Result 10.5 SECS (9.8-11.9); Partial Thromboplastin Time 28.7 SECS (23.9-33.8)
[2020-05-09] MEDS ORDERED: methylPREDNISolone SOD SUC 125 MG/2 ML VIAL IV STA (14:26)
[2020-05-09] MEDS ORDERED: SODIUM CHLORIDE 0.9% 1,000 ML IV STA (15:37)
[2020-05-09] MEDS ORDERED: DOCUSATE SODIUM 100 MG CAPSULE PO PRN (16:05)
[2020-05-09] MEDS ORDERED: ONDANSETRON 4 MG/2 ML VIAL IV PRN (16:05)
[2020-05-09] MEDS ORDERED: DEXTROSE 50% 25 GM/50 ML VIAL IV PRN ×2 (16:05)
[2020-05-09] MEDS ORDERED: GLUCAGON 1 MG VIAL IM PRN (16:05)
[2020-05-09] MEDS ORDERED: IBUPROFEN 800 MG TABLET PO PRN (16:10)
[2020-05-09] MEDS ORDERED: ENOXAPARIN 40 MG/0.4 ML SYRINGE SUBCUT SCH (16:30)
[2020-05-09] MEDS: INSULIN LISPRO 100 UNIT/ML SUBCUT SCH ×2 (17:50→23:17)
[2020-05-09] MEDS: AZITHROMYCIN 250 MG TABLET PO SCH (18:12)
[2020-05-09] MEDS: guaiFENesin 200 MG/10 ML UDCUP PO PRN (19:25)
[2020-05-09] MEDS: ALBUTEROL/IPRATROPIUM 3 ML NEB RESP TX SCH (19:48)
[2020-05-09] MEDS ORDERED: DOXYCYCLINE HYCLATE 100 MG CAPSULE PO SCH (21:00)
[2020-05-09] MEDS: CETIRIZINE 10 MG TABLET PO SCH (21:54)
[2020-05-09] MEDS: ASPIRIN EC 81 MG TABLET PO SCH (21:54)
[2020-05-09] MEDS: THEOPHYLLINE ER (24 HR) 300 MG CAPSULE PO SCH (21:54)
[2020-05-09] MEDS: MONTELUKAST 10 MG TABLET PO SCH (21:54)
[2020-05-09] MEDS: GABAPENTIN 100 MG CAPSULE PO SCH (21:54)
[2020-05-09] MEDS: NEBIVOLOL 10 MG TABLET PO SCH (21:54)
[2020-05-09] MEDS: PANTOPRAZOLE 40 MG TABLET PO SCH (21:55)
[2020-05-09] MEDS: APIXABAN 5 MG TABLET PO SCH (21:55)
[2020-05-09] MEDS: OMEGA 3 ACID ETHYL ESTERS 1 GM CAPSULE PO SCH (21:55)
[2020-05-09] MEDS: AMOXICILLIN/CLAV 500 MG TABLET PO SCH (21:55)
[2020-05-09] MEDS: FLUTICASONE 50 MCG NASAL SPRAY 16 GM BOTTLE BOTH NARES SCH (21:55)
[2020-05-09] MEDS: BUDESONIDE/FORMOTEROL 160-4.5 INHALER 6 GM INH SCH (21:55)
[2020-05-09] MEDS: ASCORBIC ACID 500 MG TABLET PO SCH (21:55)
[2020-05-09] MEDS: metFORMIN 500 MG TABLET PO SCH (21:55)
[2020-05-09] MEDS: OLMESARTAN 5 MG TABLET PO SCH (21:55)
[2020-05-10] MEDS: ALBUTEROL/IPRATROPIUM 3 ML NEB RESP TX SCH ×6 (02:00→19:10)
[2020-05-10] MEDS: methylPREDNISolone SOD SUC 40 MG/1 ML VIAL IV SCH ×2 (03:04→16:13)
[2020-05-10 04:40] LABS: Basophils % 0.1 % (0.0-0.8); Hematocrit 32.6 VOL% (35.7-47.0); Hemoglobin 10.8 GM/DL (12.0-16.0); Immature Granulocytes % 0.7 %; Immature Granulocytes Absolute 0.07 #; Lymphocytes # 1.2 10*3/uL (1.4-4.0); Lymphocytes % 11.9 % (21.3-54.2); Mean Corpuscular HGB Conc 33.1 GM/DL (32-36); Mean Corpuscular Volume 92.4 FL (87-102); Mean Platelet Volume 10.4 FL (9.6-12.0); Monocytes % 6.3 % (1.7-12.7); Platelet Count 182 T/CUMM (130-400); Red Blood Count 3.53 MC/CUMM (3.8-5.5); Red Cell Distribution Width 12.5 % (9.3-17.3); White Blood Count 9.8 T/CUMM (4-12)
[2020-05-10 05:05] LABS: Calcium 8.7 MG/DL (8.5-10.1); Osmolality,Calculated 287.1 MOS/KG (273-304)
[2020-05-10] MEDS: guaiFENesin 200 MG/10 ML UDCUP PO PRN ×4 (07:40→20:08)
[2020-05-10] MEDS: AMOXICILLIN/CLAV 500 MG TABLET PO SCH ×2 (08:45→21:44)
[2020-05-10] MEDS: INSULIN LISPRO 100 UNIT/ML SUBCUT SCH ×4 (08:52→21:55)
[2020-05-10] MEDS: glipiZIDE 10 MG TABLET PO SCH (08:52)
[2020-05-10] MEDS: OLMESARTAN 5 MG TABLET PO SCH ×2 (08:53→21:43)
[2020-05-10] MEDS: ROFLUMILAST 500 MCG TABLET PO SCH (08:53)
[2020-05-10] MEDS: MULTIVITAMIN (CENTRUM) TABLET PO SCH (08:53)
[2020-05-10] MEDS: BUDESONIDE/FORMOTEROL 160-4.5 INHALER 6 GM INH SCH ×2 (08:54→21:44)
[2020-05-10] MEDS: APIXABAN 5 MG TABLET PO SCH ×2 (08:54→21:44)
[2020-05-10] MEDS: THEOPHYLLINE ER (24 HR) 300 MG CAPSULE PO SCH ×2 (08:54→21:43)
[2020-05-10] MEDS: metFORMIN 500 MG TABLET PO SCH ×2 (08:54→21:44)
[2020-05-10] MEDS: GABAPENTIN 100 MG CAPSULE PO SCH ×2 (08:54→21:43)
[2020-05-10] MEDS: MAGNESIUM CHLORIDE 64 MG TABLET PO SCH (08:54)
[2020-05-10] MEDS: CYANOCOBALAMIN 500 MCG TABLET PO SCH (08:55)
[2020-05-10] MEDS: FLUTICASONE 50 MCG NASAL SPRAY 16 GM BOTTLE BOTH NARES SCH ×2 (10:44→21:44)
[2020-05-10] MEDS: NEBIVOLOL 10 MG TABLET PO SCH (21:43)
[2020-05-10] MEDS: OMEGA 3 ACID ETHYL ESTERS 1 GM CAPSULE PO SCH (21:43)
[2020-05-10] MEDS: PANTOPRAZOLE 40 MG TABLET PO SCH (21:43)
[2020-05-10] MEDS: CETIRIZINE 10 MG TABLET PO SCH (21:43)
[2020-05-10] MEDS: ASCORBIC ACID 500 MG TABLET PO SCH (21:43)
[2020-05-10] MEDS: MONTELUKAST 10 MG TABLET PO SCH (21:44)
[2020-05-10] MEDS: ASPIRIN EC 81 MG TABLET PO SCH (21:44)
[2020-05-11] MEDS: ALBUTEROL/IPRATROPIUM 3 ML NEB RESP TX SCH ×7 (00:11→23:38)
[2020-05-11] MEDS: guaiFENesin 200 MG/10 ML UDCUP PO PRN ×2 (00:13→21:06)
[2020-05-11] MEDS: methylPREDNISolone SOD SUC 40 MG/1 ML VIAL IV SCH ×2 (02:51→15:26)
[2020-05-11] MEDS ORDERED: MEPERIDINE 50 MG/1 ML VIAL IM ONE (07:30)
[2020-05-11] MEDS ORDERED: PROMETHAZINE 25 MG/1 ML VIAL IM ONE (07:30)
[2020-05-11] MEDS ORDERED: LIDOCAINE 1% 20 ML VIAL MISC INJ ONE (08:00)
[2020-05-11] MEDS ORDERED: MIDAZOLAM 2 MG/2 ML VIAL IV ONE (08:00)
[2020-05-11] MEDS ORDERED: LIDOCAINE 2% VISCOUS 100 ML BOTTLE SWISH/SPIT ONE (08:00)
[2020-05-11] MEDS ORDERED: LIDOCAINE 2% 20 ML VIAL RESP TX ONE (08:00)
[2020-05-11] MEDS ORDERED: MIDAZOLAM 2 MG/2 ML VIAL ONE (08:46)
[2020-05-11] MEDS ORDERED: hydrALAZINE 20 MG/1 ML VIAL IV PRN (09:56)
[2020-05-11] MEDS: MULTIVITAMIN (CENTRUM) TABLET PO SCH (11:22)
[2020-05-11] MEDS: ROFLUMILAST 500 MCG TABLET PO SCH (11:22)
[2020-05-11] MEDS: THEOPHYLLINE ER (24 HR) 300 MG CAPSULE PO SCH ×2 (11:22→21:06)
[2020-05-11] MEDS: CYANOCOBALAMIN 500 MCG TABLET PO SCH (11:22)
[2020-05-11] MEDS: AZITHROMYCIN 250 MG TABLET PO SCH (11:23)
[2020-05-11] MEDS: GABAPENTIN 100 MG CAPSULE PO SCH ×2 (11:23→21:06)
[2020-05-11] MEDS: APIXABAN 5 MG TABLET PO SCH ×2 (11:23→21:04)
[2020-05-11] MEDS: metFORMIN 500 MG TABLET PO SCH ×2 (11:23→21:04)
[2020-05-11] MEDS: INSULIN LISPRO 100 UNIT/ML SUBCUT SCH ×4 (11:24→21:06)
[2020-05-11] MEDS: glipiZIDE 10 MG TABLET PO SCH (11:24)
[2020-05-11] MEDS: MAGNESIUM CHLORIDE 64 MG TABLET PO SCH (11:24)
[2020-05-11] MEDS: BUDESONIDE/FORMOTEROL 160-4.5 INHALER 6 GM INH SCH ×2 (11:25→21:04)
[2020-05-11] MEDS: FLUTICASONE 50 MCG NASAL SPRAY 16 GM BOTTLE BOTH NARES SCH ×2 (11:25→21:04)
[2020-05-11] MEDS: OLMESARTAN 5 MG TABLET PO SCH ×2 (11:26→21:05)
[2020-05-11] MEDS: AMOXICILLIN/CLAV 500 MG TABLET PO SCH ×2 (11:30→21:06)
[2020-05-11] MEDS: CETIRIZINE 10 MG TABLET PO SCH (21:05)
[2020-05-11] MEDS: PANTOPRAZOLE 40 MG TABLET PO SCH (21:05)
[2020-05-11] MEDS: OMEGA 3 ACID ETHYL ESTERS 1 GM CAPSULE PO SCH (21:05)
[2020-05-11] MEDS: ASCORBIC ACID 500 MG TABLET PO SCH (21:05)
[2020-05-11] MEDS: NEBIVOLOL 10 MG TABLET PO SCH (21:05)
[2020-05-11] MEDS: ASPIRIN EC 81 MG TABLET PO SCH (21:06)
[2020-05-11] MEDS: MONTELUKAST 10 MG TABLET PO SCH (21:06)
[2020-05-12] MEDS: methylPREDNISolone SOD SUC 40 MG/1 ML VIAL IV SCH ×3 (02:43→15:27)
[2020-05-12] MEDS: guaiFENesin 200 MG/10 ML UDCUP PO PRN ×5 (02:45→20:23)
[2020-05-12] MEDS: ALBUTEROL/IPRATROPIUM 3 ML NEB RESP TX SCH ×5 (02:59→19:24)
[2020-05-12] MEDS: MAGNESIUM CHLORIDE 64 MG TABLET PO SCH (08:52)
[2020-05-12] MEDS: THEOPHYLLINE ER (24 HR) 300 MG CAPSULE PO SCH ×2 (08:52→20:22)
[2020-05-12] MEDS: MULTIVITAMIN (CENTRUM) TABLET PO SCH (08:52)
[2020-05-12] MEDS: glipiZIDE 10 MG TABLET PO SCH (08:53)
[2020-05-12] MEDS: CYANOCOBALAMIN 500 MCG TABLET PO SCH (08:54)
[2020-05-12] MEDS: APIXABAN 5 MG TABLET PO SCH ×2 (08:54→20:32)
[2020-05-12] MEDS: AMOXICILLIN/CLAV 500 MG TABLET PO SCH ×2 (08:55→20:22)
[2020-05-12] MEDS: ARFORMOTEROL 15 MCG/2 ML NEB RESP TX SCH ×2 (08:55→19:24)
[2020-05-12] MEDS: BUDESONIDE 0.5 MG/2 ML NEB RESP TX SCH ×2 (08:55→19:24)
[2020-05-12] MEDS: metFORMIN 500 MG TABLET PO SCH ×2 (08:55→20:22)
[2020-05-12] MEDS: ROFLUMILAST 500 MCG TABLET PO SCH (08:55)
[2020-05-12] MEDS: GABAPENTIN 100 MG CAPSULE PO SCH ×2 (08:55→20:23)
[2020-05-12] MEDS: INSULIN LISPRO 100 UNIT/ML SUBCUT SCH ×4 (08:56→20:32)
[2020-05-12] MEDS: OLMESARTAN 5 MG TABLET PO SCH ×2 (08:56→20:22)
[2020-05-12] MEDS: FLUTICASONE 50 MCG NASAL SPRAY 16 GM BOTTLE BOTH NARES SCH ×2 (09:01→20:23)
[2020-05-12] MEDS: DORNASE ALFA 2.5 MG/2.5 ML VIAL RESP TX SCH ×2 (09:05→19:24)
[2020-05-12] MEDS: NEBIVOLOL 10 MG TABLET PO SCH (20:21)
[2020-05-12] MEDS: OMEGA 3 ACID ETHYL ESTERS 1 GM CAPSULE PO SCH (20:22)
[2020-05-12] MEDS: CETIRIZINE 10 MG TABLET PO SCH (20:22)
[2020-05-12] MEDS: ASCORBIC ACID 500 MG TABLET PO SCH (20:22)
[2020-05-12] MEDS: ASPIRIN EC 81 MG TABLET PO SCH (20:22)
[2020-05-12] MEDS: PANTOPRAZOLE 40 MG TABLET PO SCH (20:22)
[2020-05-12] MEDS: MONTELUKAST 10 MG TABLET PO SCH (20:22)
[2020-05-13] MEDS: ALBUTEROL/IPRATROPIUM 3 ML NEB RESP TX SCH ×4 (00:12→11:20)
[2020-05-13] MEDS: guaiFENesin 200 MG/10 ML UDCUP PO PRN (00:28)
[2020-05-13] MEDS: methylPREDNISolone SOD SUC 40 MG/1 ML VIAL IV SCH ×2 (00:28→08:53)
[2020-05-13 06:38] LABS: Basophils % 0.1 % (0.0-0.8); Hematocrit 36.8 VOL% (35.7-47.0); Hemoglobin 11.7 GM/DL (12.0-16.0); Immature Granulocytes % 0.8 %; Immature Granulocytes Absolute 0.09 #; Lymphocytes # 0.7 10*3/uL (1.4-4.0); Lymphocytes % 6.5 % (21.3-54.2); Mean Corpuscular HGB Conc 31.8 GM/DL (32-36); Mean Corpuscular Volume 93.9 FL (87-102); Mean Platelet Volume 10.1 FL (9.6-12.0); Monocytes % 3.3 % (1.7-12.7); Neutrophils % 89.3 % (38.7-73.9); Platelet Count 219 T/CUMM (130-400); Red Blood Count 3.92 MC/CUMM (3.8-5.5); Red Cell Distribution Width 12.3 % (9.3-17.3); White Blood Count 10.7 T/CUMM (4-12)
[2020-05-13 07:00] LABS: Calcium 9.3 MG/DL (8.5-10.1); Osmolality,Calculated 289.5 MOS/KG (273-304)
[2020-05-13] MEDS: ARFORMOTEROL 15 MCG/2 ML NEB RESP TX SCH (07:32)
[2020-05-13] MEDS: BUDESONIDE 0.5 MG/2 ML NEB RESP TX SCH (07:32)
[2020-05-13] MEDS: DORNASE ALFA 2.5 MG/2.5 ML VIAL RESP TX SCH (07:48)
[2020-05-13] MEDS: glipiZIDE 10 MG TABLET PO SCH (08:51)
[2020-05-13] MEDS: INSULIN LISPRO 100 UNIT/ML SUBCUT SCH ×2 (08:52→13:13)
[2020-05-13] MEDS: CYANOCOBALAMIN 500 MCG TABLET PO SCH (08:53)
[2020-05-13] MEDS: OLMESARTAN 5 MG TABLET PO SCH (08:54)
[2020-05-13] MEDS: ROFLUMILAST 500 MCG TABLET PO SCH (08:54)
[2020-05-13] MEDS: APIXABAN 5 MG TABLET PO SCH (08:55)
[2020-05-13] MEDS: AZITHROMYCIN 250 MG TABLET PO SCH (08:55)
[2020-05-13] MEDS: THEOPHYLLINE ER (24 HR) 300 MG CAPSULE PO SCH (08:55)
[2020-05-13] MEDS: MULTIVITAMIN (CENTRUM) TABLET PO SCH (08:55)
[2020-05-13] MEDS: metFORMIN 500 MG TABLET PO SCH (08:55)
[2020-05-13] MEDS: MAGNESIUM CHLORIDE 64 MG TABLET PO SCH (08:55)
[2020-05-13] MEDS: GABAPENTIN 100 MG CAPSULE PO SCH (08:55)
[2020-05-13] MEDS: AMOXICILLIN/CLAV 500 MG TABLET PO SCH (08:56)
[2020-05-13] MEDS: FLUTICASONE 50 MCG NASAL SPRAY 16 GM BOTTLE BOTH NARES SCH (08:57)
[2020-05-13 15:59] VITALS: BP 145/82
== END 2020-05-13 16:30 | disposition home or self-care (01) | DRG 191 ==
LOC: N.ED 12:10 → SUATTDRO 16:05 → N.EDINP 16:05 → N.TELEN 17:05
PROVIDERS: ADMIT Internal Medicine; ATTEND Emergency Medicine

== ENCOUNTER 2022-05-23 15:45 | Inpatient (IN) ==
[2022-05-23] MEDS ORDERED: DILTIAZEM 50 MG/10 ML VIAL IV ONE (16:21)
[2022-05-23] MEDS ORDERED: SODIUM CHLORIDE 0.9% 1,000 ML IV STA (16:27)
[2022-05-23] MEDS ORDERED: DILTIAZEM 25 MG/5 ML VIAL IV STA (16:27)
[2022-05-23] MEDS ORDERED: ASPIRIN 325 MG TABLET PO STA (16:27)
[2022-05-23] MEDS ORDERED: AMIODARONE INJ 150 MG in DEXTROSE 5% 100 ML IV ONE (16:32)
[2022-05-23 16:36] LABS: Basophils % 0.1 % (0.0-0.8); Eosinophils # 0.2 10*3/uL (0.0-0.87); Eosinophils % 1.7 % (0.00-10.9); Hematocrit 39.4 VOL% (35.7-47.0); Hemoglobin 12.8 GM/DL (12.0-16.0); Immature Granulocytes % 0.7 %; Lymphocytes # 3.7 10*3/uL (1.4-4.0); Lymphocytes % 26.4 % (21.3-54.2); Mean Corpuscular HGB Conc 32.5 GM/DL (32-36); Mean Corpuscular Volume 93.6 FL (87-102); Mean Platelet Volume 9.8 FL (9.6-12.0); Monocytes # 1.2 10*3/uL (0.11-0.8); Monocytes % 8.8 % (1.7-12.7); Neutrophils % 62.3 % (38.7-73.9); Platelet Count 268 T/CUMM (130-400); Red Blood Count 4.21 MC/CUMM (3.8-5.5); Red Cell Distribution Width 13.8 % (9.3-17.3); White Blood Count 13.9 T/CUMM (4-12)
[2022-05-23 16:58] LABS: Alanine Aminotransferase 21 U/L (13-56); Albumin 3.3 G/DL (3.4-5.0); Alkaline Phosphatase 83 U/L (45-117); Aspartate Amino Transferase 14 U/L (0-37); Bilirubin,Total < 0.39 MG/DL (0.20-1.00); Blood Urea Nitrogen 22 MG/DL (7-18); Calcium 9.3 MG/DL (8.5-10.1); Carbon Dioxide 24 MMOL/L (21-32); Chloride 103 MMOL/L (98-107); Glucose 401 MG/DL (74-106); Osmolality,Calculated 294.7 MOS/KG (273-304); Potassium 3.3 MMOL/L (3.5-5.1); Sodium 138 MMOL/L (136-145); Total Protein 6.5 G/DL (6.4-8.2)
[2022-05-23] MEDS ORDERED: AMIODARONE INJ 450 MG in DEXTROSE 5% 241 ML IV SCH (17:00)
[2022-05-23 17:11] LABS: PT Patient Result 10.7 SECS (10.1-12.1); Partial Thromboplastin Time 23.9 SECS (23.7-32.9)
[2022-05-23] MEDS ORDERED: ALBUTEROL 2.5 MG/3 ML NEB RESP TX PRN (17:58)
[2022-05-23 18:00] LABS: Bilirubin,Urine Negative (Negative); Blood, Urine Negative (Negative); Glucose,Urine (UA) >=1000 mg/dL (Negative); Ketones,Urine 15 mg/dL (Negative); Nitrite,Urine Negative (Negative); Protein,Urine Trace mg/dL (Negative); Urine Appearance Clear (Clear); Urine Color Yellow (Yellow); Urine Urobilinogen 0.2 eU/dL (<2.0)
[2022-05-23] MEDS ORDERED: LACTATED RINGERS 1,000 ML IV SCH (18:00)
[2022-05-23 18:02] LABS: Hyaline Casts,Urine 1 /LPF (0-3); Mucus,Urine Occasional /LPF (Occasional); RBC,Urine <1 /HPF (0-4); Squamous Epithelial Cell,Urine Occasional /HPF (0-10)
[2022-05-23] MEDS ORDERED: GLUCAGON 1 MG VIAL IM PRN (18:28)
[2022-05-23] MEDS ORDERED: DEXTROSE 10% 250 ML BAG IV PRN (18:28)
[2022-05-23] MEDS: ALBUTEROL/IPRATROPIUM 3 ML NEB RESP TX SCH (19:05)
[2022-05-23] MEDS: methylPREDNISolone SOD SUC 40 MG/1 ML VIAL IV SCH (20:55)
[2022-05-23] MEDS: AZITHROMYCIN INJ 500 MG in SODIUM CHLORIDE 0.9% 250 ML IV SCH (21:00)
[2022-05-23] MEDS: THEOPHYLLINE ER (24 HR) 300 MG CAPSULE PO SCH (22:29)
[2022-05-23] MEDS: PANTOPRAZOLE 40 MG TABLET PO SCH (22:29)
[2022-05-23] MEDS: MONTELUKAST 10 MG TABLET PO SCH (22:29)
[2022-05-23] MEDS: INSULIN LISPRO 100 UNIT/ML SUBCUT SCH (22:29)
[2022-05-23] MEDS: ASPIRIN CHEW 81 MG TABLET PO SCH (22:29)
[2022-05-23] MEDS: NON-FORMULARY MEDICATION (Budesonide-Glycopyr-Formoterol [Breztri Aerosphere] 160-9-4.8 mc INH SCH (22:48)
[2022-05-24] MEDS: ALBUTEROL/IPRATROPIUM 3 ML NEB RESP TX SCH ×5 (00:05→23:51)
[2022-05-24] MEDS ORDERED: AMIODARONE INJ 450 MG in DEXTROSE 5% 241 ML IV SCH ×2 (01:00→09:30)
[2022-05-24 05:20] LABS: Albumin 2.7 G/DL (3.4-5.0); Bilirubin,Total 0.4 MG/DL (0.20-1.00); Calcium 8.9 MG/DL (8.5-10.1); Osmolality,Calculated 292.4 MOS/KG (273-304); Potassium 3.8 MMOL/L (3.5-5.1); Total Protein 5.5 G/DL (6.4-8.2)
[2022-05-24 07:20] LABS: Eosinophils % 0.1 % (0.00-10.9); Hematocrit 35.5 VOL% (35.7-47.0); Hemoglobin 11.5 GM/DL (12.0-16.0); Immature Granulocytes % 0.8 %; Immature Granulocytes Absolute 0.09 #; Lymphocytes # 0.9 10*3/uL (1.4-4.0); Lymphocytes % 7.5 % (21.3-54.2); Mean Corpuscular HGB Conc 32.4 GM/DL (32-36); Mean Corpuscular Volume 93.2 FL (87-102); Mean Platelet Volume 10.7 FL (9.6-12.0); Monocytes # 0.5 10*3/uL (0.11-0.8); Monocytes % 4.5 % (1.7-12.7); Neutrophils % 87.1 % (38.7-73.9); Platelet Count 236 T/CUMM (130-400); Red Blood Count 3.81 MC/CUMM (3.8-5.5); Red Cell Distribution Width 13.9 % (9.3-17.3); White Blood Count 11.4 T/CUMM (4-12)
[2022-05-24] MEDS ORDERED: MIDAZOLAM 2 MG/2 ML VIAL ONE (07:25)
[2022-05-24] MEDS ORDERED: PROMETHAZINE 25 MG/1 ML VIAL IM ONE (07:43)
[2022-05-24] MEDS ORDERED: MIDAZOLAM 2 MG/2 ML VIAL IV ONE ×2 (07:55→08:00)
[2022-05-24] MEDS ORDERED: LIDOCAINE 1% 20 ML VIAL MISC INJ ONE (08:00)
[2022-05-24] MEDS ORDERED: LIDOCAINE 2% 20 ML VIAL RESP TX ONE (08:00)
[2022-05-24] MEDS ORDERED: MEPERIDINE 50 MG/1 ML VIAL IM ONE (08:00)
[2022-05-24] MEDS ORDERED: LIDOCAINE 2% VISCOUS 100 ML BOTTLE SWISH/SPIT ONE (08:25)
[2022-05-24] MEDS ORDERED: AMIODARONE 450 MG/9 ML VIAL IV ONE (09:05)
[2022-05-24] MEDS: methylPREDNISolone SOD SUC 40 MG/1 ML VIAL IV SCH ×3 (09:15→16:36)
[2022-05-24] MEDS: INSULIN LISPRO 100 UNIT/ML SUBCUT SCH ×4 (09:15→20:50)
[2022-05-24] MEDS ORDERED: METOPROLOL TARTRATE 5 MG/5 ML VIAL IV PRN (09:48)
[2022-05-24] MEDS: NON-FORMULARY MEDICATION (Budesonide-Glycopyr-Formoterol [Breztri Aerosphere] 160-9-4.8 mc INH SCH (09:53)
[2022-05-24] MEDS: THEOPHYLLINE ER (24 HR) 300 MG CAPSULE PO SCH ×2 (10:34→20:50)
[2022-05-24] MEDS: BENZONATATE 100 MG CAPSULE PO PRN ×2 (10:34→22:02)
[2022-05-24] MEDS: NEBIVOLOL 10 MG TABLET PO SCH (10:35)
[2022-05-24] MEDS: INSULIN GLARGINE 100 UNIT/ML SUBCUT SCH (10:35)
[2022-05-24] MEDS: MONTELUKAST 10 MG TABLET PO SCH (20:49)
[2022-05-24] MEDS: AZITHROMYCIN INJ 500 MG in SODIUM CHLORIDE 0.9% 250 ML IV SCH (20:49)
[2022-05-24] MEDS: PANTOPRAZOLE 40 MG TABLET PO SCH (20:50)
[2022-05-24] MEDS: ASPIRIN CHEW 81 MG TABLET PO SCH (20:50)
[2022-05-24] MEDS: APIXABAN 5 MG TABLET PO SCH (20:57)
[2022-05-25] MEDS: NON-FORMULARY MEDICATION (Budesonide-Glycopyr-Formoterol [Breztri Aerosphere] 160-9-4.8 mc INH SCH ×3 (00:29→21:03)
[2022-05-25] MEDS: methylPREDNISolone SOD SUC 40 MG/1 ML VIAL IV SCH ×3 (00:46→21:02)
[2022-05-25] MEDS ORDERED: ZALEPLON 5 MG CAPSULE PO PRN (01:11)
[2022-05-25 03:34] LABS: Basophils % 0.1 % (0.0-0.8); Hematocrit 33.7 VOL% (35.7-47.0); Hemoglobin 11.1 GM/DL (12.0-16.0); Immature Granulocytes Absolute 0.12 #; Lymphocytes # 0.4 10*3/uL (1.4-4.0); Lymphocytes % 3.6 % (21.3-54.2); Mean Corpuscular HGB Conc 32.9 GM/DL (32-36); Mean Corpuscular Volume 91.3 FL (87-102); Mean Platelet Volume 9.5 FL (9.6-12.0); Monocytes # 0.3 10*3/uL (0.11-0.8); Monocytes % 2.5 % (1.7-12.7); Neutrophils % 92.8 % (38.7-73.9); Platelet Count 210 T/CUMM (130-400); Red Blood Count 3.69 MC/CUMM (3.8-5.5); Red Cell Distribution Width 13.5 % (9.3-17.3)
[2022-05-25 03:57] LABS: Calcium 9.3 MG/DL (8.5-10.1); Osmolality,Calculated 287.7 MOS/KG (273-304); Potassium 3.8 MMOL/L (3.5-5.1)
[2022-05-25 03:59] LABS: Lymphocytes 2 % (20-55); Platelet Estimate Adequate; Total Cells Counted 100
[2022-05-25] MEDS ORDERED: hydrALAZINE 20 MG/1 ML VIAL IV ONE (04:06)
[2022-05-25 04:10] LABS: Arterial Base Excess iSTAT 0 MMOL/L (-2.5-2.5); Arterial Bicarbonate iSTAT 24.4 MMOL/L (20-26); Arterial O2 Saturation iSTAT 94 % (95-100); Arterial PCO2 iSTAT 38 MM HG (35-48); Arterial PO2 iSTAT 69 MM HG (80-95); Arterial Total CO2 iSTAT 26 MMO/L (23-27); Arterial pH iSTAT 7.413 (7.35-7.45)
[2022-05-25] MEDS ORDERED: hydrALAZINE 20 MG/1 ML VIAL ONE (04:19)
[2022-05-25] MEDS: guaiFENesin 200 MG/10 ML UDCUP PO PRN ×2 (04:49→21:03)
[2022-05-25] MEDS: ALBUTEROL/IPRATROPIUM 3 ML NEB RESP TX SCH ×3 (07:22→19:03)
[2022-05-25] MEDS ORDERED: INFLUENZA VIRUS VACCINE 0.5 ML SYRINGE IM ONE (08:00)
[2022-05-25] MEDS: INSULIN GLARGINE 100 UNIT/ML SUBCUT SCH (08:47)
[2022-05-25] MEDS: NEBIVOLOL 10 MG TABLET PO SCH (08:48)
[2022-05-25] MEDS: INSULIN LISPRO 100 UNIT/ML SUBCUT SCH ×4 (08:48→21:03)
[2022-05-25] MEDS: THEOPHYLLINE ER (24 HR) 300 MG CAPSULE PO SCH ×2 (08:49→21:03)
[2022-05-25] MEDS: BENZONATATE 100 MG CAPSULE PO PRN (08:49)
[2022-05-25] MEDS: APIXABAN 5 MG TABLET PO SCH ×2 (08:49→21:02)
[2022-05-25] MEDS ORDERED: INSULIN GLARGINE 100 UNIT/ML SUBCUT SCH (09:00)
[2022-05-25] MEDS ORDERED: INSULIN GLARGINE 100 UNIT/ML SUBCUT ONE (10:40)
[2022-05-25] MEDS: AZITHROMYCIN INJ 500 MG in SODIUM CHLORIDE 0.9% 250 ML IV SCH (20:50)
[2022-05-25] MEDS: MONTELUKAST 10 MG TABLET PO SCH (21:02)
[2022-05-25] MEDS: ASPIRIN CHEW 81 MG TABLET PO SCH (21:02)
[2022-05-25] MEDS: PANTOPRAZOLE 40 MG TABLET PO SCH (21:02)
[2022-05-26] MEDS: ALBUTEROL/IPRATROPIUM 3 ML NEB RESP TX SCH ×4 (00:13→19:26)
[2022-05-26 04:39] LABS: Basophils % 0.1 % (0.0-0.8); Hematocrit 34.7 VOL% (35.7-47.0); Hemoglobin 11.1 GM/DL (12.0-16.0); Immature Granulocytes % 1.5 %; Immature Granulocytes Absolute 0.19 #; Lymphocytes # 0.5 10*3/uL (1.4-4.0); Lymphocytes % 3.6 % (21.3-54.2); Mean Corpuscular Volume 92.8 FL (87-102); Mean Platelet Volume 10.1 FL (9.6-12.0); Monocytes # 0.3 10*3/uL (0.11-0.8); Monocytes % 2.5 % (1.7-12.7); Neutrophils % 92.3 % (38.7-73.9); Platelet Count 218 T/CUMM (130-400); Red Blood Count 3.74 MC/CUMM (3.8-5.5); Red Cell Distribution Width 13.7 % (9.3-17.3)
[2022-05-26 04:53] LABS: Calcium 8.8 MG/DL (8.5-10.1); Osmolality,Calculated 292.7 MOS/KG (273-304); Potassium 3.8 MMOL/L (3.5-5.1)
[2022-05-26 05:36] LABS: Hypochromia Slight; Lymphocytes 4 % (20-55); Microcytosis Slight; Total Cells Counted 100
[2022-05-26 05:37] LABS: Platelet Estimate Normal
[2022-05-26] MEDS: INSULIN GLARGINE 100 UNIT/ML SUBCUT SCH (10:08)
[2022-05-26] MEDS: INSULIN LISPRO 100 UNIT/ML SUBCUT SCH ×4 (10:08→20:46)
[2022-05-26] MEDS: NEBIVOLOL 10 MG TABLET PO SCH (10:09)
[2022-05-26] MEDS: APIXABAN 5 MG TABLET PO SCH ×2 (10:09→20:46)
[2022-05-26] MEDS: methylPREDNISolone SOD SUC 40 MG/1 ML VIAL IV SCH ×2 (10:09→20:47)
[2022-05-26] MEDS: THEOPHYLLINE ER (24 HR) 300 MG CAPSULE PO SCH ×2 (10:09→20:46)
[2022-05-26] MEDS: BENZONATATE 100 MG CAPSULE PO PRN (10:10)
[2022-05-26] MEDS: guaiFENesin 200 MG/10 ML UDCUP PO PRN ×2 (10:10→20:46)
[2022-05-26] MEDS: NON-FORMULARY MEDICATION (Budesonide-Glycopyr-Formoterol [Breztri Aerosphere] 160-9-4.8 mc INH SCH ×2 (10:13→20:48)
[2022-05-26] MEDS: ACETYLCYSTEINE 20% 800 MG/4 ML VIAL RESP TX SCH ×2 (12:49→19:38)
[2022-05-26] MEDS: AZITHROMYCIN INJ 500 MG in SODIUM CHLORIDE 0.9% 250 ML IV SCH (20:45)
[2022-05-26] MEDS: MONTELUKAST 10 MG TABLET PO SCH (20:46)
[2022-05-26] MEDS: PANTOPRAZOLE 40 MG TABLET PO SCH (20:46)
[2022-05-26] MEDS: ASPIRIN CHEW 81 MG TABLET PO SCH (20:46)
[2022-05-27] MEDS: ALBUTEROL/IPRATROPIUM 3 ML NEB RESP TX SCH ×4 (00:22→19:55)
[2022-05-27] MEDS: ACETYLCYSTEINE 20% 800 MG/4 ML VIAL RESP TX SCH ×4 (00:36→20:04)
[2022-05-27 04:38] LABS: Hematocrit 34.3 VOL% (35.7-47.0); Hemoglobin 11.2 GM/DL (12.0-16.0); Immature Granulocytes % 1.3 %; Immature Granulocytes Absolute 0.12 #; Lymphocytes # 0.5 10*3/uL (1.4-4.0); Lymphocytes % 5.8 % (21.3-54.2); Mean Corpuscular HGB Conc 32.7 GM/DL (32-36); Mean Corpuscular Volume 92.5 FL (87-102); Mean Platelet Volume 10.1 FL (9.6-12.0); Monocytes # 0.3 10*3/uL (0.11-0.8); Monocytes % 3.6 % (1.7-12.7); Neutrophils % 89.3 % (38.7-73.9); Platelet Count 203 T/CUMM (130-400); Red Blood Count 3.71 MC/CUMM (3.8-5.5); Red Cell Distribution Width 13.5 % (9.3-17.3); White Blood Count 9.4 T/CUMM (4-12)
[2022-05-27 04:57] LABS: Calcium 8.8 MG/DL (8.5-10.1); Osmolality,Calculated 293.4 MOS/KG (273-304); Potassium 3.7 MMOL/L (3.5-5.1)
[2022-05-27] MEDS: APIXABAN 5 MG TABLET PO SCH ×2 (09:17→20:47)
[2022-05-27] MEDS: INSULIN LISPRO 100 UNIT/ML SUBCUT SCH ×4 (09:17→20:47)
[2022-05-27] MEDS: NEBIVOLOL 10 MG TABLET PO SCH (09:17)
[2022-05-27] MEDS: THEOPHYLLINE ER (24 HR) 300 MG CAPSULE PO SCH ×2 (09:18→20:48)
[2022-05-27] MEDS: NON-FORMULARY MEDICATION (Budesonide-Glycopyr-Formoterol [Breztri Aerosphere] 160-9-4.8 mc INH SCH ×2 (09:18→20:48)
[2022-05-27] MEDS: INSULIN GLARGINE 100 UNIT/ML SUBCUT SCH (09:18)
[2022-05-27] MEDS: methylPREDNISolone SOD SUC 40 MG/1 ML VIAL IV SCH (10:29)
[2022-05-27] MEDS: predniSONE 20 MG TABLET PO SCH (10:34)
[2022-05-27] MEDS: ROFLUMILAST 500 MCG TABLET PO SCH (12:04)
[2022-05-27] MEDS ORDERED: diphenhydrAMINE 50 MG/1 ML VIAL IV ONE (18:28)
[2022-05-27] MEDS ORDERED: diphenhydrAMINE CAP 25 MG CAPSULE PO ONE (18:40)
[2022-05-27] MEDS: PANTOPRAZOLE 40 MG TABLET PO SCH (20:48)
[2022-05-27] MEDS: ASPIRIN CHEW 81 MG TABLET PO SCH (20:48)
[2022-05-27] MEDS: MONTELUKAST 10 MG TABLET PO SCH (20:48)
[2022-05-27] MEDS: amLODIPine 5 MG TABLET PO SCH (20:48)
[2022-05-28] MEDS: ALBUTEROL/IPRATROPIUM 3 ML NEB RESP TX SCH ×4 (00:07→19:20)
[2022-05-28] MEDS: ACETYLCYSTEINE 20% 800 MG/4 ML VIAL RESP TX SCH ×2 (00:24→07:06)
[2022-05-28 05:09] LABS: Basophils % 0.1 % (0.0-0.8); Eosinophils % 0.2 % (0.00-10.9); Hematocrit 37.9 VOL% (35.7-47.0); Hemoglobin 12.4 GM/DL (12.0-16.0); Immature Granulocytes % 0.8 %; Lymphocytes # 2.2 10*3/uL (1.4-4.0); Lymphocytes % 17.1 % (21.3-54.2); Mean Corpuscular HGB Conc 32.7 GM/DL (32-36); Mean Corpuscular Volume 92.9 FL (87-102); Monocytes % 8.1 % (1.7-12.7); Neutrophils % 73.7 % (38.7-73.9); Platelet Count 214 T/CUMM (130-400); Red Blood Count 4.08 MC/CUMM (3.8-5.5); Red Cell Distribution Width 13.4 % (9.3-17.3); White Blood Count 12.6 T/CUMM (4-12)
[2022-05-28 05:27] LABS: Calcium 9.4 MG/DL (8.5-10.1); Osmolality,Calculated 291.1 MOS/KG (273-304); Potassium 3.8 MMOL/L (3.5-5.1)
[2022-05-28] MEDS: INSULIN LISPRO 100 UNIT/ML SUBCUT SCH ×4 (08:53→20:50)
[2022-05-28] MEDS: INSULIN GLARGINE 100 UNIT/ML SUBCUT SCH (08:54)
[2022-05-28] MEDS: predniSONE 20 MG TABLET PO SCH (08:58)
[2022-05-28] MEDS: ROFLUMILAST 500 MCG TABLET PO SCH (08:58)
[2022-05-28] MEDS: THEOPHYLLINE ER (24 HR) 300 MG CAPSULE PO SCH ×2 (08:58→20:53)
[2022-05-28] MEDS: NEBIVOLOL 10 MG TABLET PO SCH (08:58)
[2022-05-28] MEDS: APIXABAN 5 MG TABLET PO SCH ×2 (08:59→20:50)
[2022-05-28] MEDS: NON-FORMULARY MEDICATION (Budesonide-Glycopyr-Formoterol [Breztri Aerosphere] 160-9-4.8 mc INH SCH ×2 (09:04→20:53)
[2022-05-28] MEDS: DORNASE ALFA 2.5 MG/2.5 ML VIAL RESP TX SCH ×2 (10:45→19:20)
[2022-05-28] MEDS ORDERED: hydrOXYzine HCL 25 MG TABLET PO PRN (13:10)
[2022-05-28] MEDS ORDERED: diphenhydrAMINE 50 MG/1 ML VIAL IV PRN (13:11)
[2022-05-28] MEDS: MONTELUKAST 10 MG TABLET PO SCH (20:50)
[2022-05-28] MEDS: amLODIPine 5 MG TABLET PO SCH (20:51)
[2022-05-28] MEDS: ASPIRIN CHEW 81 MG TABLET PO SCH (20:52)
[2022-05-28] MEDS: PANTOPRAZOLE 40 MG TABLET PO SCH (20:52)
[2022-05-29] MEDS: ALBUTEROL/IPRATROPIUM 3 ML NEB RESP TX SCH ×2 (00:30→07:01)
[2022-05-29 05:27] LABS: Basophils % 0.1 % (0.0-0.8); Eosinophils # 0.1 10*3/uL (0.0-0.87); Eosinophils % 0.7 % (0.00-10.9); Hematocrit 37.8 VOL% (35.7-47.0); Hemoglobin 12.3 GM/DL (12.0-16.0); Immature Granulocytes % 0.8 %; Immature Granulocytes Absolute 0.09 #; Lymphocytes # 2.6 10*3/uL (1.4-4.0); Lymphocytes % 22.7 % (21.3-54.2); Mean Corpuscular HGB Conc 32.5 GM/DL (32-36); Mean Corpuscular Volume 92.2 FL (87-102); Monocytes # 0.9 10*3/uL (0.11-0.8); Monocytes % 7.6 % (1.7-12.7); Neutrophils % 68.1 % (38.7-73.9); Platelet Count 208 T/CUMM (130-400); Red Cell Distribution Width 13.4 % (9.3-17.3); White Blood Count 11.3 T/CUMM (4-12)
[2022-05-29 05:44] LABS: Calcium 9.3 MG/DL (8.5-10.1); Osmolality,Calculated 287.3 MOS/KG (273-304); Potassium 3.3 MMOL/L (3.5-5.1)
[2022-05-29] MEDS: DORNASE ALFA 2.5 MG/2.5 ML VIAL RESP TX SCH (07:01)
[2022-05-29] MEDS: INSULIN LISPRO 100 UNIT/ML SUBCUT SCH (07:48)
[2022-05-29 08:20] VITALS: BP 153/65
[2022-05-29] MEDS: predniSONE 20 MG TABLET PO SCH (08:38)
[2022-05-29] MEDS: THEOPHYLLINE ER (24 HR) 300 MG CAPSULE PO SCH (08:38)
[2022-05-29] MEDS: ROFLUMILAST 500 MCG TABLET PO SCH (08:38)
[2022-05-29] MEDS: NEBIVOLOL 10 MG TABLET PO SCH (08:38)
[2022-05-29] MEDS: APIXABAN 5 MG TABLET PO SCH (08:38)
[2022-05-29] MEDS: INSULIN GLARGINE 100 UNIT/ML SUBCUT SCH (08:41)
== END 2022-05-29 10:07 | disposition home health service (06) | DRG 191 ==
LOC: N.ED 15:45 → SUATTDRO 17:58 → N.EDINP 17:58 → N.CC 19:52 → N.ICU 05-24 15:52 → N.TELES 05-25 12:05
PROVIDERS: ADMIT Internal Medicine; ATTEND Internal Medicine